=== PATIENT | female | born 1980 | race Caucasian/White ===

== ENCOUNTER 2016-10-08 16:00 | Emergency (ER) | payer OTHER ==
[~2016-10-08] VITALS: Ht 167.6 cm; Wt 81.6 kg
[2016-10-08] MEDS ORDERED: HYDROMORPHONE 1 MG/1 ML DISP.SYRIN ONE ×2 (16:20→18:06)
[2016-10-08] MEDS ORDERED: ONDANSETRON HCL/PF 4 MG/2 ML VIAL ONE (16:20)
[2016-10-08] MEDS ORDERED: IV SET PRIMARY PUMP SET 1 EA INFUS.SET MC ONE (16:20)
[2016-10-08] MEDS ORDERED: IV NS 0.9% 1,000 ML ONE (16:20)
[2016-10-08 16:30] LABS: BASOPHILS # (AUTO) 0.1 /CMM (0.0-0.2); BASOPHILS % (AUTO) 0.7 % (0.0-2.0); DIFF TOTAL % 100 %; EOSINOPHILS # (AUTO) 0.1 /CMM (0.0-0.7); EOSINOPHILS % (AUTO) 0.9 % (0.0-6.0); HEMATOCRIT 45 % (33-45); HEMOGLOBIN 14.9 g/dL (11.5-14.8); LYMPHOCYTES # (AUTO) 2.9 /CMM (0.8-4.8); LYMPHOCYTES % (AUTO) 24.9 % (20.0-44.0); MEAN CORPUSCULAR HEMOGLOBIN 28 PG (26.0-33.0); MEAN CORPUSCULAR HGB CONC 33 g/dl (31.0-36.0); MEAN CORPUSCULAR VOLUME 84 fL (82-100); MONOCYTES # (AUTO) 0.8 /CMM (0.1-1.30); MONOCYTES % (AUTO) 6.6 % (2.0-12.0); NEUTROPHILS # (AUTO) 7.7 /CMM (1.8-8.9); NEUTROPHILS % (AUTO) 66.9 % (43.0-81.0); PLATELET COUNT (AUTO) 480 /CMM (150-450); WHITE BLOOD COUNT (AUTO) 11.6 K/uL (4.3-11.0)
[2016-10-08] MEDS ORDERED: ONDANSETRON HCL/PF 4 MG/2 ML VIAL IVP ONE (16:30)
[2016-10-08] MEDS ORDERED: HYDROMORPHONE INJ 2 MG/ML DISP.SYRIN IV ONE (16:30)
[2016-10-08] MEDS ORDERED: IV NS 0.9% 1,000 ML BAG IV ONE (16:30)
[2016-10-08 16:32] LABS: KETONES,URINE 80 (NEGATIVE); LEUKOCYTE ESTERASE ,URINE Negative (NEGATIVE); PH,URINE 5.5 (5.0-8.0)
[2016-10-08 16:35] LABS: ADD UA MICROSCOPIC YES
[2016-10-08 16:36] LABS: PREGNANCY TEST URINE QUAL NEGATIVE (NEGATIVE)
[2016-10-08 16:44] LABS: INR 0.9 (0.87-1.13); PROTHROMBIN TIME 9.4 SECS (9.5-12.7)
[2016-10-08 16:46] LABS: ALBUMIN 3.6 g/dL (3.4-5.0); BILIRUBIN,DIRECT 0.1 mg/dL (0.0-0.2); BILIRUBIN,TOTAL 0.9 mg/dL (0.2-1.0); CREATININE 0.8 mg/dL (0.6-1.3); INDIRECT BILIRUBIN 0.8 mg/dL (0.0-1.1); POTASSIUM 3.7 mmol/L (3.5-5.1)
[2016-10-08 16:50] LABS: ADD URINE CULTURE NO; RBC,URINE NONE SEEN /HPF (0-2); WBC,URINE NONE SEEN /HPF (0-3)
[2016-10-08] MEDS ORDERED: HYDROMORPHONE 1 MG/1 ML DISP.SYRIN IV ONE (18:00)
[2016-10-08 18:37] VITALS: BP 134/72
[2016-10-08] MEDS ORDERED: INSULIN DETEMIR 100 UNIT/ML CARTRIDGE SQ SCH (22:00)
[2016-10-08] MEDS ORDERED: INSULIN GLARGINE, 100 UNIT/ML CARTRIDGE SQ SCH (22:00)
== END 2016-10-08 18:38 | disposition home or self-care (01) ==
LOC: ER 16:01
DX: R10.9 Unspecified abdominal pain (principal); E11.65 Type 2 diabetes mellitus with hyperglycemia; Z88.5 Allergy status to narcotic agent; Z88.8 Allergy status to other drugs, medicaments and biological substances
CPT/HCPCS: 36415; 71010; 74176; 80048; 80076; 81001; 83690; 84703; 85025; 85730; 96361; 96372; 96374; 96375; 96376; 99285; A4606; J1170 ×2; J1815; J2405; J7030; Z7610; 81000-TC

== ENCOUNTER 2016-11-02 15:35 | Emergency (ER) | payer OTHER ==
[~2016-11-02] VITALS: Ht 165.1 cm; Wt 83.9 kg
[2016-11-02] MEDS ORDERED: IV NS 0.9% 1,000 ML BAG IV ONE (16:00)
[2016-11-02] MEDS ORDERED: HYDROMORPHONE INJ 2 MG/ML DISP.SYRIN IV ONE (16:00)
[2016-11-02] MEDS ORDERED: ONDANSETRON HCL/PF 4 MG/2 ML VIAL IVP ONE (16:00)
[2016-11-02] MEDS ORDERED: IV SET PRIMARY 1 EA INFUS.SET MC ONE ×2 (16:01→16:33)
[2016-11-02] MEDS ORDERED: HYDROMORPHONE 1 MG/1 ML DISP.SYRIN ONE ×2 (16:01→18:26)
[2016-11-02] MEDS ORDERED: IV NS 0.9% 1,000 ML ONE ×2 (16:02→16:33)
[2016-11-02] MEDS ORDERED: ONDANSETRON HCL/PF 4 MG/2 ML VIAL ONE ×2 (16:02→18:34)
[2016-11-02 16:08] LABS: BASOPHILS # (AUTO) 0.1 /CMM (0.0-0.2); BASOPHILS % (AUTO) 0.8 % (0.0-2.0); DIFF TOTAL % 100 %; EOSINOPHILS # (AUTO) 0.1 /CMM (0.0-0.7); EOSINOPHILS % (AUTO) 1.3 % (0.0-6.0); HEMATOCRIT 42 % (33-45); HEMOGLOBIN 14.1 g/dL (11.5-14.8); LYMPHOCYTES # (AUTO) 3.2 /CMM (0.8-4.8); LYMPHOCYTES % (AUTO) 33.4 % (20.0-44.0); MEAN CORPUSCULAR HEMOGLOBIN 28 PG (26.0-33.0); MEAN CORPUSCULAR HGB CONC 34 g/dl (31.0-36.0); MEAN CORPUSCULAR VOLUME 83 fL (82-100); MONOCYTES # (AUTO) 0.7 /CMM (0.1-1.30); MONOCYTES % (AUTO) 6.8 % (2.0-12.0); NEUTROPHILS # (AUTO) 5.5 /CMM (1.8-8.9); NEUTROPHILS % (AUTO) 57.7 % (43.0-81.0); PLATELET COUNT (AUTO) 427 /CMM (150-450); RED BLOOD CELL COUNT(AUTO) 5.07 MIL/uL (4.0-5.2); WHITE BLOOD COUNT (AUTO) 9.6 K/uL (4.3-11.0)
[2016-11-02 16:13] LABS: KETONES,URINE Trace (NEGATIVE); LEUKOCYTE ESTERASE ,URINE Negative (NEGATIVE); PH,URINE 5.5 (5.0-8.0)
[2016-11-02 16:15] LABS: ADD UA MICROSCOPIC YES; PREGNANCY TEST URINE QUAL NEGATIVE (NEGATIVE)
[2016-11-02 16:17] LABS: ADD URINE CULTURE NO
[2016-11-02 16:23] LABS: POTASSIUM 3.9 mmol/L (3.5-5.1)
[2016-11-02] MEDS ORDERED: IV NS 0.9% 1,000 ML IV ONE (16:30)
[2016-11-02 16:33] LABS: ALBUMIN 3.4 g/dL (3.4-5.0); BILIRUBIN,DIRECT 0.1 mg/dL (0.0-0.2); BILIRUBIN,TOTAL 0.6 mg/dL (0.2-1.0); CREATININE 0.8 mg/dL (0.6-1.3); INDIRECT BILIRUBIN 0.5 mg/dL (0.0-1.1); TOTAL PROTEIN, SERUM 7.3 g/dL (6.4-8.2)
[2016-11-02] MEDS ORDERED: INSULIN REGULAR, HUMAN 100 UNIT/ML 10 ML VIAL SQ ONE (17:30)
[2016-11-02] MEDS ORDERED: INSULIN REGULAR, HUMAN 100 UNIT/ML 10 ML VIAL ONE (17:47)
[2016-11-02] MEDS ORDERED: HYDROMORPHONE 1 MG/1 ML DISP.SYRIN IV ONE (18:30)
[2016-11-02 20:13] VITALS: BP 128/77
== END 2016-11-02 20:15 | disposition home or self-care (01) ==
LOC: ER 15:37
DX: E11.65 Type 2 diabetes mellitus with hyperglycemia (principal); K85.90 Acute pancreatitis without necrosis or infection, unspecified; R10.9 Unspecified abdominal pain; Z88.6 Allergy status to analgesic agent; Z88.8 Allergy status to other drugs, medicaments and biological substances; Z90.49 Acquired absence of other specified parts of digestive tract
CPT/HCPCS: 36415; 80048; 80076; 81001; 82962; 83690; 84703; 85025; 96361; 96372; 96374; 96375; 96376; 99284; A4606; J1170 ×2; J1815; J2405 ×2; J7030 ×2; Z7610; 81000-TC

== ENCOUNTER 2017-02-01 13:34 | Emergency (ER) | payer OTHER ==
[~2017-02-01] VITALS: Ht 167.6 cm; Wt 83.9 kg
[2017-02-01] MEDS ORDERED: ACETAMINOPHEN ES 500 MG TABLET PO ONE (14:30)
[2017-02-01] MEDS ORDERED: METOCLOPRAMIDE HCL 10 MG/2 ML VIAL IV ONE (14:30)
[2017-02-01 14:31] LABS: BASOPHILS # (AUTO) 0.1 /CMM (0.0-0.2); BASOPHILS % (AUTO) 0.7 % (0.0-2.0); EOSINOPHILS # (AUTO) 0.1 /CMM (0.0-0.7); EOSINOPHILS % (AUTO) 1.1 % (0.0-6.0); HEMATOCRIT 39 % (33-45); HEMOGLOBIN 13.4 g/dL (11.5-14.8); LYMPHOCYTES # (AUTO) 2.3 /CMM (0.8-4.8); LYMPHOCYTES % (AUTO) 30.4 % (20.0-44.0); MEAN CORPUSCULAR HEMOGLOBIN 29 PG (26.0-33.0); MEAN CORPUSCULAR HGB CONC 34 g/dl (31.0-36.0); MEAN CORPUSCULAR VOLUME 84 fL (82-100); MONOCYTES # (AUTO) 0.6 /CMM (0.1-1.30); MONOCYTES % (AUTO) 8.3 % (2.0-12.0); NEUTROPHILS # (AUTO) 4.6 /CMM (1.8-8.9); NEUTROPHILS % (AUTO) 59.5 % (43.0-81.0); PLATELET COUNT (AUTO) 390 /CMM (150-450); RDW COEFFICIENT OF VARIATION 12.9 (11.5-15.0); RED BLOOD CELL COUNT(AUTO) 4.67 MIL/uL (4.0-5.2); WHITE BLOOD COUNT (AUTO) 7.7 K/uL (4.3-11.0)
[2017-02-01] MEDS ORDERED: ACETAMINOPHEN ES 500 MG TABLET ONE (14:31)
[2017-02-01] MEDS ORDERED: METOCLOPRAMIDE HCL 10 MG/2 ML VIAL ONE (14:31)
[2017-02-01 14:35] LABS: APPEARANCE,URINE CLEAR (CLEAR); BILIRUBIN,URINE NEGATIVE (NEGATIVE); BLOOD, URINE NEGATIVE Ery/uL (NEGATIVE); COLOR,URINE YELLOW (YELLOW); KETONES,URINE 1+ (NEGATIVE); LEUKOCYTE ESTERASE ,URINE NEGATIVE (NEGATIVE); NITRITE, URINE NEGATIVE (NEGATIVE); PROTEIN,URINE NEGATIVE (NEGATIVE); UGLUCOSE 3+ mg/dL (NEGATIVE); UROBILINOGEN,URINE 0.2 EU/dL (0.2)
[2017-02-01 14:44] LABS: BACTERIA,URINE Few /HPF (None Seen); PREGNANCY TEST URINE QUAL NEGATIVE (NEGATIVE); RBC,URINE 0-2 /HPF (0-2); WBC,URINE 0-2 /HPF (0-3); YEAST,URINE Few /HPF (None Seen)
--- NOTE | 2017-02-01 14:55 | NUR ---
IV removed. Catheter intact and site benign. Pressure and 4x4 applied to site. No bleeding noted.
--- NOTE | 2017-02-01 14:57 | NUR ---
PT STATES SHE NEEDS TO LEAVE TO GET HER DAUGHTER. Patient does not wish to proceed with medical care recommended by Dr. Gracia. Patient given information related to possible complications, up to and including , which could occur as a result of leaving the hospital at this time. Patient verbalizes understanding of risks involved due to leaving against medical advice. Patient has signed AMA form.
[2017-02-01 15:28] VITALS: BP 121/65
== END 2017-02-01 15:29 | disposition left against medical advice (07) ==
LOC: ER 13:35
DX: R51 Headache (principal); R42 Dizziness and giddiness; R19.7 Diarrhea, unspecified; R10.32 Left lower quadrant pain; E11.9 Type 2 diabetes mellitus without complications; Z90.49 Acquired absence of other specified parts of digestive tract; Z88.5 Allergy status to narcotic agent; Z88.8 Allergy status to other drugs, medicaments and biological substances
CPT/HCPCS: 36415; 81000-TC; 84703-TC; 85025-TC; A4606; J2765; Z7610

== ENCOUNTER 2018-04-28 17:43 | Emergency (ER) | payer OTHER ==
[~2018-04-28] VITALS: Ht 165.1 cm; Wt 81.6 kg
[2018-04-28 18:48] LABS: APPEARANCE,URINE Clear (CLEAR); BILIRUBIN,URINE Negative (NEGATIVE); BLOOD, URINE Trace-intact Ery/uL (NEGATIVE); COLOR,URINE Yellow (YELLOW); KETONES,URINE 15 (NEGATIVE); LEUKOCYTE ESTERASE ,URINE Negative (NEGATIVE); NITRITE, URINE Negative (NEGATIVE); PH,URINE 6.5 (5.0-8.0); PROTEIN,URINE Negative (NEGATIVE); UGLUCOSE >=1000 mg/dL (NEGATIVE); UROBILINOGEN,URINE 0.2 EU/dL (0.2)
[2018-04-28 19:10] LABS: BASOPHILS # (AUTO) 0.1 /CMM (0.0-0.2); BASOPHILS % (AUTO) 0.7 % (0.0-2.0); EOSINOPHILS % (AUTO) 0.7 % (0.0-6.0); HEMATOCRIT 40 % (33-45); HEMOGLOBIN 13.3 g/dL (11.5-14.8); LYMPHOCYTES # (AUTO) 2.8 /CMM (0.8-4.8); LYMPHOCYTES % (AUTO) 32.3 % (20.0-44.0); MEAN CORPUSCULAR HEMOGLOBIN 27 PG (26.0-33.0); MEAN CORPUSCULAR HGB CONC 33 g/dl (31.0-36.0); MEAN CORPUSCULAR VOLUME 82 fL (82-100); MONOCYTES # (AUTO) 0.5 /CMM (0.1-1.30); MONOCYTES % (AUTO) 5.9 % (2.0-12.0); NEUTROPHILS # (AUTO) 5.2 /CMM (1.8-8.9); NEUTROPHILS % (AUTO) 60.4 % (43.0-81.0); PLATELET COUNT (AUTO) 482 /CMM (150-450); RDW COEFFICIENT OF VARIATION 12.3 (11.5-15.0); RED BLOOD CELL COUNT(AUTO) 4.87 MIL/uL (4.0-5.2); WHITE BLOOD COUNT (AUTO) 8.7 K/uL (4.3-11.0)
--- NOTE | 2018-04-28 19:10 | NUR ---
ASSUMED CARE. PT C/O LUQ ABDOMINAL PAIN WITH NAUSEA AND DIARRHEA SINCE THIS MORNING. PT AAOX4 NO ACUTE DISTRESS NOTED, RESP EVEN AND UNLABORED. PT WAS SEEN AND EVALUATED BY ER PROFESSIONAL BENEFITS SALES CONSULTANT WITH ORDERS. WILL CARRY OUT ORDERS.
[2018-04-28 19:15] LABS: BACTERIA,URINE None seen /HPF (None Seen); SQUAMOUS EPITHELIAL CELL,UR Few /HPF (None Seen); WBC,URINE 0-2 /HPF (0-3)
[2018-04-28] MEDS ORDERED: HYDROMORPHONE 1 MG/1 ML DISP.SYRIN ONE (19:18)
[2018-04-28] MEDS ORDERED: ONDANSETRON HCL/PF 4 MG/2 ML VIAL ONE (19:18)
[2018-04-28 19:24] LABS: INR 0.88 (0.85-1.15)
[2018-04-28] MEDS: HYDROMORPHONE INJ 2 MG/ML DISP.SYRIN IV ONE (19:25)
[2018-04-28] MEDS: ONDANSETRON HCL/PF 4 MG/2 ML VIAL IVP ONE (19:25)
[2018-04-28] MEDS: IV NS 0.9% 1,000 ML BAG IV ONE (19:25)
--- NOTE | 2018-04-28 19:25 | NUR ---
PT MEDICATED BY RN PER ER MD ORDER.
[2018-04-28 19:27] LABS: ALBUMIN 3.1 g/dL (3.4-5.0); BILIRUBIN,DIRECT 0.1 mg/dL (0.0-0.2); BILIRUBIN,TOTAL 0.5 mg/dL (0.2-1.0); CALCIUM, SERUM 8.4 mg/dL (8.5-10.1); CREATININE 0.9 mg/dL (0.6-1.3); POTASSIUM 4.1 mmol/L (3.5-5.1); TOTAL PROTEIN, SERUM 7.2 g/dL (6.4-8.2)
[2018-04-28] MEDS ORDERED: INSULIN REGULAR, HUMAN 100 UNIT/ML 10 ML VIAL ONE (19:44)
[2018-04-28] MEDS: INSULIN REGULAR, HUMAN 100 UNIT/ML 10 ML VIAL IV ONE (19:47)
[2018-04-28 20:12] LABS: LIPASE 175 U/L (73-393)
--- NOTE | 2018-04-28 21:10 | NUR ---
IV removed. Catheter intact and site benign. Pressure and 4x4 applied to site. No bleeding noted. Patient discharged to home in stable condition. Written and verbal after care instructions given. Patient verbalizes understanding of instruction. ambulatory with a steady gait noted. pt aaox4 no acute distress noted, resp even and unlabored. advice pt not to drive or operate any machinery due to pt was given narcotic medicine. pt verbalize understanding.
[2018-04-28 21:14] VITALS: BP 127/75
== END 2018-04-28 21:15 | disposition home or self-care (01) ==
LOC: ER 17:47
DX: E11.65 Type 2 diabetes mellitus with hyperglycemia (principal); Z87.19 Personal history of other diseases of the digestive system; Z90.49 Acquired absence of other specified parts of digestive tract; Z98.890 Other specified postprocedural states; Z88.8 Allergy status to other drugs, medicaments and biological substances
CPT/HCPCS: 36415; 80048-TC; 80076-TC; 81000-TC; 82010-TC; 82962-TC; 83605-TC; 83690-TC; 84703-TC; 85025-TC; 85730-TC; 87040-TC; A4606; J1170; J1815; J2405; J7030; Z7610

== ENCOUNTER 2018-05-17 17:46 | Emergency (ER) | payer OTHER ==
[~2018-05-17] VITALS: Ht 175.3 cm; Wt 81.6 kg
[2018-05-17] MEDS ORDERED: BUPIVACAINE 0.5 % PF 150 MG/30 ML VIAL ONE (18:17)
[2018-05-17] MEDS ORDERED: BUPIVACAINE 0.5 % PF 150 MG/30 ML VIAL TP ONE (18:30)
[2018-05-17] MEDS ORDERED: MORPHINE SULFATE INJ 2 MG/ML DISP.SYRIN IM ONE (18:30)
[2018-05-17] MEDS ORDERED: MORPHINE SULFATE INJ 4 MG/ML DISP.SYRIN ONE (18:32)
[2018-05-17] MEDS ORDERED: IV NS 0.9% 1,000 ML BAG IV ONE (19:30)
[2018-05-17] MEDS ORDERED: INSULIN REGULAR, HUMAN 100 UNIT/ML 10 ML VIAL SQ ONE (19:30)
[2018-05-17 19:38] LABS: HEMOGLOBIN 13.9 g/dL (11.5-14.8)
[2018-05-17] MEDS ORDERED: INSULIN REGULAR, HUMAN 100 UNIT/ML 10 ML VIAL ONE (19:39)
--- NOTE | 2018-05-17 19:48 | NUR ---
PT SITTING UPRIGHT ON HOSPITAL BED INITIAL C/C OF TOE PAIN. HX OF DM. ACCUCHECK READING 439. PT AA/OX4. NO S/S SOB. SKIN PINK, WARM, DRY. TOE CARE COMPLETED BY PA. MOVES ALL EXTREMITIES WELL. NAD. VSS. STABLE CONDITION. WILL CONTINUE TO MONITOR.
[2018-05-17 19:57] LABS: BASOPHILS # (AUTO) 0.1 /CMM (0.0-0.2); BASOPHILS % (AUTO) 1.3 % (0.0-2.0); EOSINOPHILS % (AUTO) 1.3 % (0.0-6.0); HEMATOCRIT 42 % (33-45); LYMPHOCYTES # (AUTO) 3.1 /CMM (0.8-4.8); LYMPHOCYTES % (AUTO) 30.5 % (20.0-44.0); MEAN CORPUSCULAR HGB CONC 33 g/dl (31.0-36.0); MEAN CORPUSCULAR VOLUME 82 fL (82-100); MONOCYTES # (AUTO) 0.7 /CMM (0.1-1.30); MONOCYTES % (AUTO) 6.6 % (2.0-12.0); NEUTROPHILS # (AUTO) 6.2 /CMM (1.8-8.9); NEUTROPHILS % (AUTO) 60.3 % (43.0-81.0); PLATELET COUNT (AUTO) 506 /CMM (150-450); RDW COEFFICIENT OF VARIATION 12.1 (11.5-15.0); RED BLOOD CELL COUNT(AUTO) 5.15 MIL/uL (4.0-5.2); WHITE BLOOD COUNT (AUTO) 10.2 K/uL (4.3-11.0)
[2018-05-17 20:05] LABS: CREATININE 0.8 mg/dL (0.6-1.3); POTASSIUM 3.8 mmol/L (3.5-5.1)
[2018-05-17] MEDS ORDERED: HYDROCODONE/APAP 5/325MG 1 EACH TABLET ONE (20:15)
[2018-05-17] MEDS ORDERED: HYDROCODONE/APAP 5/325MG 1 EACH TABLET PO ONE (20:30)
--- NOTE | 2018-05-17 20:59 | NUR ---
Patient discharged to home in stable condition. Written and verbal after care instructions given. Patient verbalizes understanding of instruction. IV removed. Catheter intact and site benign. Pressure and 4x4 applied to site. No bleeding noted. AMBULATED WITH STEADY GAIT. INSTRUCTED NOT TO DRIVE OR OPERATE HEAVY MACHINERY.
[2018-05-17 21:01] VITALS: BP 118/80
== END 2018-05-17 21:02 | disposition home or self-care (01) ==
LOC: ER 17:47
DX: L03.032 Cellulitis of left toe (principal); L60.0 Ingrowing nail; E11.65 Type 2 diabetes mellitus with hyperglycemia; E87.1 Hypo-osmolality and hyponatremia; E86.0 Dehydration; Z87.19 Personal history of other diseases of the digestive system; Z90.49 Acquired absence of other specified parts of digestive tract; Z98.890 Other specified postprocedural states; Z88.8 Allergy status to other drugs, medicaments and biological substances
CPT/HCPCS: 11730; 36415; 80048-TC; 82962-TC; 85025-TC; A4606; A6402; A6403; J1815; J2270; J3490; Z7610

== ENCOUNTER 2018-09-01 13:27 | Emergency (ER) | payer OTHER ==
[~2018-09-01] VITALS: Ht 167.6 cm; Wt 38.6 kg
--- NOTE | 2018-09-01 13:40 | NUR ---
PT AMBULATORY TO ER BED 11 C/O LUQ ABDOMINAL PAIN W/ NAUSEA X 13 HOURS. ALSO C/O SORETHROAT. GOWNED AND PLACED ON MONITOR. AWAITING MD VÁZQUEZ.
--- NOTE | 2018-09-01 14:21 | NUR ---
DR BANERJEE AT BEDSIDE FOR EVAL.
[2018-09-01 14:31] LABS: BASOPHILS # (AUTO) 0.1 /CMM (0.0-0.2); BASOPHILS % (AUTO) 0.8 % (0.0-2.0); HEMATOCRIT 36 % (33-45); HEMOGLOBIN 12.2 g/dL (11.5-14.8); LYMPHOCYTES # (AUTO) 2.8 /CMM (0.8-4.8); LYMPHOCYTES % (AUTO) 34.5 % (20.0-44.0); MEAN CORPUSCULAR HGB CONC 34 g/dl (31.0-36.0); MEAN CORPUSCULAR VOLUME 85 fL (82-100); MONOCYTES # (AUTO) 0.8 /CMM (0.1-1.30); NEUTROPHILS # (AUTO) 4.3 /CMM (1.8-8.9); NEUTROPHILS % (AUTO) 53.7 % (43.0-81.0); PLATELET COUNT (AUTO) 448 /CMM (150-450); RED BLOOD CELL COUNT(AUTO) 4.29 MIL/uL (4.0-5.2)
[2018-09-01 14:32] LABS: APPEARANCE,URINE Clear (CLEAR); BILIRUBIN,URINE Negative (NEGATIVE); BLOOD, URINE Trace-lysed Ery/uL (NEGATIVE); COLOR,URINE Yellow (YELLOW); KETONES,URINE Trace (NEGATIVE); LEUKOCYTE ESTERASE ,URINE Negative (NEGATIVE); NITRITE, URINE Negative (NEGATIVE); PROTEIN,URINE Trace mg/dl (NEGATIVE); UGLUCOSE >=1000 mg/dL (NEGATIVE); UROBILINOGEN,URINE 0.2 EU/dL (0.2)
[2018-09-01 14:38] LABS: CALCIUM, SERUM 8.2 mg/dL (8.5-10.1); CREATININE 0.7 mg/dL (0.6-1.3); POTASSIUM 3.7 mmol/L (3.5-5.1)
[2018-09-01 14:38] LABS: BACTERIA,URINE Few /HPF (None Seen); SQUAMOUS EPITHELIAL CELL,UR Few /HPF (None Seen); WBC,URINE 0-2 /HPF (0-3)
[2018-09-01] MEDS ORDERED: ONDANSETRON HCL/PF 4 MG/2 ML VIAL ONE (14:41)
[2018-09-01 14:46] LABS: BILIRUBIN,DIRECT 0.1 mg/dL (0.0-0.2); BILIRUBIN,TOTAL 0.4 mg/dL (0.2-1.0); TOTAL PROTEIN, SERUM 6.6 g/dL (6.4-8.2)
[2018-09-01] MEDS ORDERED: HYDROMORPHONE INJ 2 MG/ML DISP.SYRIN ONE (14:47)
[2018-09-01] MEDS: IV NS 0.9% 1,000 ML BAG IV ONE (14:50)
[2018-09-01] MEDS ORDERED: IV NS 0.9% 250 ML IV ONE (14:50)
[2018-09-01] MEDS ORDERED: IOHEXOL-300 100 ML VIAL IV ONE (14:50)
[2018-09-01] MEDS ORDERED: CT SWABBABLE VALVE TRANS SET 1 EA INFUS.SET MC ONE (14:50)
[2018-09-01] MEDS: ONDANSETRON HCL/PF 4 MG/2 ML VIAL IVP ONE (14:51)
[2018-09-01] MEDS: HYDROMORPHONE INJ 0.5 MG/0.5 ML SYRINGE IV ONE (14:53)
[2018-09-01] MEDS: MORPHINE SULFATE INJ 2 MG/ML DISP.SYRIN IV ONE (14:54)
--- NOTE | 2018-09-01 15:05 | NUR ---
PT TO RADIOLOGY FOR ABDOMINAL CT SCAN VIA [facility].
[2018-09-01] MEDS: AZITHROMYCIN 250 MG TABLET PO ONE (18:13)
[2018-09-01] MEDS ORDERED: AZITHROMYCIN 250 MG TABLET ONE (18:13)
[2018-09-01] MEDS ORDERED: TRAMADOL HCL 50 MG TABLET ONE (19:07)
[2018-09-01] MEDS: TRAMADOL HCL 50 MG TABLET PO ONE (19:10)
--- NOTE | 2018-09-01 19:10 | NUR ---
PT IS STILL C/O PAIN, ERMD MADE AWARE. ULTRAM 50MG PO GIVEN,
--- NOTE | 2018-09-01 19:17 | NUR ---
Note renée in EDM - 09/01/18 at 1919 by KAYE Patient discharged to home in stable condition. Written and verbal after care instructions given. Patient verbalizes understanding of instruction.IV removed. Catheter intact and site benign. Pressure and 4x4 applied to site. No bleeding noted.
[2018-09-01 19:22] VITALS: BP 120/65
== END 2018-09-01 19:23 | disposition home or self-care (01) ==
LOC: ER 13:30
DX: K52.9 Noninfective gastroenteritis and colitis, unspecified (principal); I88.9 Nonspecific lymphadenitis, unspecified; J02.9 Acute pharyngitis, unspecified; E11.9 Type 2 diabetes mellitus without complications; Z90.49 Acquired absence of other specified parts of digestive tract; Z98.890 Other specified postprocedural states; Z87.19 Personal history of other diseases of the digestive system; Z88.8 Allergy status to other drugs, medicaments and biological substances
CPT/HCPCS: 36415; 80048-TC; 80076-TC; 81000-TC; 82010-TC; 82962-TC; 83605-TC; 83690-TC; 84703-TC; 85025-TC; J1170; J2405; J7030; J7050; Q9967

== ENCOUNTER 2018-10-27 14:29 | Emergency (ER) | payer OTHER ==
[~2018-10-27] VITALS: Ht 167.6 cm; Wt 83.9 kg
--- NOTE | 2018-10-27 15:25 | NUR ---
ORVILLE MEDRANO AT BEDSIDE FOR EVAL.
[2018-10-27] MEDS ORDERED: IV NS 0.9% 1,000 ML BAG IV ONE (15:30)
[2018-10-27] MEDS ORDERED: ONDANSETRON HCL/PF 4 MG/2 ML VIAL IVP ONE (15:30)
[2018-10-27] MEDS ORDERED: MORPHINE SULFATE INJ 2 MG/ML DISP.SYRIN IV ONE ×2 (15:30→18:00)
--- NOTE | 2018-10-27 15:35 | NUR ---
IV LINE STARTED BLOOD DRAWN AND SENT TO LAB.
[2018-10-27] MEDS ORDERED: MORPHINE SULFATE INJ 4 MG/ML DISP.SYRIN ONE ×2 (15:37→18:05)
[2018-10-27] MEDS ORDERED: ONDANSETRON HCL/PF 4 MG/2 ML VIAL ONE (15:37)
[2018-10-27 15:39] LABS: BASOPHILS # (AUTO) 0.1 /CMM (0.0-0.2); BASOPHILS % (AUTO) 1.2 % (0.0-2.0); EOSINOPHILS % (AUTO) 0.8 % (0.0-6.0); HEMATOCRIT 38 % (33-45); HEMOGLOBIN 12.7 g/dL (11.5-14.8); LYMPHOCYTES # (AUTO) 1.9 /CMM (0.8-4.8); LYMPHOCYTES % (AUTO) 22.6 % (20.0-44.0); MEAN CORPUSCULAR HGB CONC 33 g/dl (31.0-36.0); MEAN CORPUSCULAR VOLUME 86 fL (82-100); MONOCYTES # (AUTO) 0.9 /CMM (0.1-1.30); MONOCYTES % (AUTO) 10.3 % (2.0-12.0); NEUTROPHILS # (AUTO) 5.6 /CMM (1.8-8.9); NEUTROPHILS % (AUTO) 65.1 % (43.0-81.0); PLATELET COUNT (AUTO) 455 /CMM (150-450); RED BLOOD CELL COUNT(AUTO) 4.45 MIL/uL (4.0-5.2); WHITE BLOOD COUNT (AUTO) 8.6 K/uL (4.3-11.0)
[2018-10-27 15:43] LABS: APPEARANCE,URINE Clear (CLEAR); BILIRUBIN,URINE Negative (NEGATIVE); BLOOD, URINE Negative Ery/uL (NEGATIVE); COLOR,URINE Yellow (YELLOW); KETONES,URINE Negative (NEGATIVE); LEUKOCYTE ESTERASE ,URINE Negative (NEGATIVE); NITRITE, URINE Negative (NEGATIVE); PH,URINE 5.5 (5.0-8.0); PROTEIN,URINE Negative (NEGATIVE); UGLUCOSE >=1000 mg/dL (NEGATIVE); UROBILINOGEN,URINE 0.2 EU/dL (0.2)
[2018-10-27 15:54] LABS: BACTERIA,URINE Few /HPF (None Seen); RBC,URINE 0-2 /HPF (0-2); SQUAMOUS EPITHELIAL CELL,UR Few /HPF (None Seen); WBC,URINE 0-2 /HPF (0-3)
[2018-10-27 16:07] LABS: CALCIUM, SERUM 8.8 mg/dL (8.5-10.1); CREATININE 0.8 mg/dL (0.6-1.3); POTASSIUM 4.3 mmol/L (3.5-5.1)
[2018-10-27 16:08] LABS: ALBUMIN 3.3 g/dL (3.4-5.0); BILIRUBIN,DIRECT 0.1 mg/dL (0.0-0.2); BILIRUBIN,TOTAL 0.5 mg/dL (0.2-1.0); TOTAL PROTEIN, SERUM 7.1 g/dL (6.4-8.2)
[2018-10-27] MEDS ORDERED: INSULIN REGULAR, HUMAN 100 UNIT/ML 10 ML VIAL ONE (16:28)
[2018-10-27] MEDS ORDERED: INSULIN REGULAR, HUMAN 100 UNIT/ML 10 ML VIAL SQ ONE (16:30)
[2018-10-27] MEDS ORDERED: KETOROLAC TROMETHAMINE INJ 30 MG/ML VIAL IV ONE (17:00)
[2018-10-27] MEDS ORDERED: KETOROLAC TROMETHAMINE INJ 30 MG/ML VIAL ONE (17:35)
[2018-10-27] MEDS ORDERED: IOHEXOL-300 100 ML VIAL IV ONE (17:57)
[2018-10-27] MEDS ORDERED: CT SWABBABLE VALVE TRANS SET 1 EA INFUS.SET MC ONE (17:57)
[2018-10-27] MEDS ORDERED: IV NS 0.9% 250 ML IV ONE (17:58)
--- NOTE | 2018-10-27 18:30 | NUR ---
PT TO RADIOLOGY FOR ABDOMINAL CT SCAN VIA [facility].
[2018-10-27 19:05] VITALS: BP 114/77
--- NOTE | 2018-10-27 19:05 | NUR ---
Patient discharged to home in stable condition. Written and verbal after care instructions given. Patient verbalizes understanding of instruction.IV removed. Catheter intact and site benign. Pressure and 4x4 applied to site. No bleeding noted.
== END 2018-10-27 19:06 | disposition home or self-care (01) ==
LOC: ER 14:35
DX: R10.32 Left lower quadrant pain (principal); E11.9 Type 2 diabetes mellitus without complications; Z86.19 Personal history of other infectious and parasitic diseases; Z98.890 Other specified postprocedural states; Z88.8 Allergy status to other drugs, medicaments and biological substances
CPT/HCPCS: 36415; 74177; 80048; 80076; 81001; 82962; 83690; 84703; 85025; 96361; 96372; 96374; 96375; 96376; 99284; A4606; J1815; J1885; J2270 ×2; J2405; J7030; J7050; Q9967; 81000-TC

== ENCOUNTER 2018-11-19 00:31 | Emergency (ER) | payer OTHER ==
[~2018-11-19] VITALS: Ht 167.6 cm; Wt 83.9 kg
[2018-11-19] MEDS ORDERED: PAROXETINE HCL 40MG TABLET (00:54)
[2018-11-19] MEDS ORDERED: PAROXETINE HCL 20 MG TABLET PO STA (01:19)
[2018-11-19] MEDS ORDERED: PAROXETINE HCL 20 MG TABLET ONE (01:47)
--- NOTE | 2018-11-19 01:50 | NUR ---
RECEIEVED MEDICATION FROM 3RD FLOOR PYS.
[2018-11-19 02:11] VITALS: BP 129/74
== END 2018-11-19 02:14 | disposition home or self-care (01) ==
LOC: ER 00:34
DX: F41.9 Anxiety disorder, unspecified (principal); F32.9 Major depressive disorder, single episode, unspecified; E11.9 Type 2 diabetes mellitus without complications; Z98.890 Other specified postprocedural states; Z90.49 Acquired absence of other specified parts of digestive tract; Z88.8 Allergy status to other drugs, medicaments and biological substances; Z79.899 Other long term (current) drug therapy

== ENCOUNTER 2018-12-13 19:05 | Emergency (ER) | payer OTHER ==
[~2018-12-13] VITALS: Ht 167.6 cm; Wt 83.9 kg
[~2018-12-13 19:05] MED LIST: PAROXETINE HCL 40MG TABLET
[2018-12-13] MEDS ORDERED: MORPHINE SULFATE INJ 4 MG/ML DISP.SYRIN ONE (19:49)
[2018-12-13] MEDS ORDERED: ONDANSETRON HCL/PF 4 MG/2 ML VIAL ONE (19:49)
[2018-12-13 20:00] LABS: BASOPHILS # (AUTO) 0.1 /CMM (0.0-0.2); BASOPHILS % (AUTO) 1.3 % (0.0-2.0); EOSINOPHILS % (AUTO) 1.2 % (0.0-6.0); HEMATOCRIT 39 % (33-45); HEMOGLOBIN 13.3 g/dL (11.5-14.8); LYMPHOCYTES % (AUTO) 37.8 % (20.0-44.0); MEAN CORPUSCULAR HGB CONC 34 g/dl (31.0-36.0); MEAN CORPUSCULAR VOLUME 85 fL (82-100); MONOCYTES # (AUTO) 0.6 /CMM (0.1-1.30); MONOCYTES % (AUTO) 7.9 % (2.0-12.0); NEUTROPHILS # (AUTO) 4.2 /CMM (1.8-8.9); NEUTROPHILS % (AUTO) 51.8 % (43.0-81.0); PLATELET COUNT (AUTO) 429 /CMM (150-450); RED BLOOD CELL COUNT(AUTO) 4.62 MIL/uL (4.0-5.2); WHITE BLOOD COUNT (AUTO) 8.1 K/uL (4.3-11.0)
[2018-12-13] MEDS ORDERED: ONDANSETRON HCL/PF 4 MG/2 ML VIAL IVP ONE (20:00)
[2018-12-13] MEDS ORDERED: MORPHINE SULFATE INJ 2 MG/ML DISP.SYRIN IV ONE (20:00)
--- NOTE | 2018-12-13 20:02 | NUR ---
C/C L ABD PAIN AND FLANK PAIN, +DYSURIA, -HEMATURIA, LAST BM YESTERDAY. PT AAOX4, VSS. DENIES ANY OTHER DISCOMFORT. PT SEEN & EVAL'D BY DR. DAILEY. MEDICATED PER ORDERED, PT LAKSHMI WELL. WILL CONT TO MONITOR.
[2018-12-13 20:03] LABS: APPEARANCE,URINE Clear (CLEAR); BILIRUBIN,URINE Negative (NEGATIVE); BLOOD, URINE Negative Ery/uL (NEGATIVE); COLOR,URINE Yellow (YELLOW); KETONES,URINE 15 (NEGATIVE); LEUKOCYTE ESTERASE ,URINE Negative (NEGATIVE); NITRITE, URINE Negative (NEGATIVE); PROTEIN,URINE Negative (NEGATIVE); UGLUCOSE 500 MG/DL mg/dL (NEGATIVE); UROBILINOGEN,URINE 0.2 EU/dL (0.2)
[2018-12-13 20:12] LABS: RBC,URINE 0-2 /HPF (0-2); WBC,URINE 0-2 /HPF (0-3)
[2018-12-13 20:12] LABS: ALBUMIN 3.2 g/dL (3.4-5.0); BILIRUBIN,DIRECT 0.1 mg/dL (0.0-0.2); BILIRUBIN,TOTAL 0.4 mg/dL (0.2-1.0); CALCIUM, SERUM 8.6 mg/dL (8.5-10.1); CREATININE 0.7 mg/dL (0.6-1.3); POTASSIUM 3.4 mmol/L (3.5-5.1)
[2018-12-13 20:13] LABS: BACTERIA,URINE Few /HPF (None Seen); SQUAMOUS EPITHELIAL CELL,UR Few /HPF (None Seen)
--- NOTE | 2018-12-13 20:14 | NUR ---
PT TO CT VIA [facility].
[2018-12-13] MEDS ORDERED: IV NS 0.9% 1,000 ML BAG IV ONE ×2 (21:00→22:00)
[2018-12-13] MEDS ORDERED: INSULIN LISPRO/ASPART 100 UNIT/ML CARTRIDGE SQ ONE ×2 (21:30→22:01)
[2018-12-13] MEDS ORDERED: INSULIN REGULAR, HUMAN 100 UNIT/ML 10 ML VIAL ONE (21:34)
[2018-12-13] MEDS ORDERED: KETOROLAC TROMETHAMINE INJ 30 MG/ML VIAL ONE (21:40)
--- NOTE | 2018-12-13 21:51 | NUR ---
PT STILL C/O LOW BACK PAIN 04/01, MEDICATED PER ERMD ORDER. PT LAKSHMI WELL.
[2018-12-13] MEDS ORDERED: KETOROLAC TROMETHAMINE INJ 30 MG/ML VIAL IV ONE (22:00)
[2018-12-13 23:15] VITALS: BP 124/76
--- NOTE | 2018-12-13 23:15 | NUR ---
Patient discharged to home in stable condition. Written and verbal after care instructions given. Patient verbalizes understanding of instruction. IV removed. Catheter intact and site benign. Pressure and 4x4 applied to site. No bleeding noted.
== END 2018-12-13 23:16 | disposition home or self-care (01) ==
LOC: ER 19:07
DX: R10.32 Left lower quadrant pain (principal); R10.12 Left upper quadrant pain; E11.65 Type 2 diabetes mellitus with hyperglycemia; M54.5 Low back pain; F41.9 Anxiety disorder, unspecified; F32.9 Major depressive disorder, single episode, unspecified; Z98.890 Other specified postprocedural states; Z90.49 Acquired absence of other specified parts of digestive tract; Z86.19 Personal history of other infectious and parasitic diseases; Z88.8 Allergy status to other drugs, medicaments and biological substances; Z79.899 Other long term (current) drug therapy
CPT/HCPCS: 36415; 74176; 80048; 80076; 81001; 82962; 83690; 84703; 85025; 87086; 96361; 96372; 96374; 96375; 99284; J1815 ×2; J1885; J2270; J2405; J7030 ×2; 81000-TC

== ENCOUNTER 2019-01-09 18:12 | Emergency (ER) ==
[~2019-01-09] VITALS: Ht 167.6 cm; Wt 90.7 kg
--- NOTE | 2019-01-09 19:00 | NUR ---
CAME IN FOR LOWER BACK PAIN AND BURNING SENSATION IN URINATION x 2 DAYS, WORST PAIN TODAY. TO ER BED 10,AOX 4, RESPIRATIONS EVEN AND UNLABORED, HOOKED TO MONITOR, PROVIDED WITH WARM BLANKET, AWAITING MD VÁZQUEZ.
--- NOTE | 2019-01-09 19:08 | NUR ---
PA MAIN AT BEDSIDE
[2019-01-09 19:22] LABS: BASOPHILS # (AUTO) 0.1 /CMM (0.0-0.2); BASOPHILS % (AUTO) 1.2 % (0.0-2.0); EOSINOPHILS % (AUTO) 1.1 % (0.0-6.0); HEMATOCRIT 36 % (33-45); HEMOGLOBIN 12.4 g/dL (11.5-14.8); LYMPHOCYTES % (AUTO) 35.4 % (20.0-44.0); MEAN CORPUSCULAR HGB CONC 34 g/dl (31.0-36.0); MEAN CORPUSCULAR VOLUME 85 fL (82-100); MONOCYTES # (AUTO) 0.7 /CMM (0.1-1.30); NEUTROPHILS # (AUTO) 4.6 /CMM (1.8-8.9); NEUTROPHILS % (AUTO) 54.3 % (43.0-81.0); PLATELET COUNT (AUTO) 467 /CMM (150-450); RED BLOOD CELL COUNT(AUTO) 4.29 MIL/uL (4.0-5.2); WHITE BLOOD COUNT (AUTO) 8.5 K/uL (4.3-11.0)
--- NOTE | 2019-01-09 19:22 | NUR ---
URINE SAMPLE SENT TO LAB
[2019-01-09 19:23] LABS: APPEARANCE,URINE Slightly Cloudy (CLEAR); BILIRUBIN,URINE Negative (NEGATIVE); BLOOD, URINE Small Ery/uL (NEGATIVE); COLOR,URINE Light yellow (YELLOW); KETONES,URINE 15 (NEGATIVE); LEUKOCYTE ESTERASE ,URINE Trace (NEGATIVE); NITRITE, URINE Negative (NEGATIVE); PH,URINE 5.5 (5.0-8.0); PROTEIN,URINE Negative (NEGATIVE); UGLUCOSE 500 MG/DL mg/dL (NEGATIVE); UROBILINOGEN,URINE 0.2 EU/dL (0.2)
[2019-01-09] MEDS ORDERED: ACETAMINOPHEN ES 500 MG TABLET ONE (19:23)
[2019-01-09] MEDS ORDERED: IBUPROFEN 400 MG TABLET ONE (19:23)
[2019-01-09 19:29] LABS: RBC,URINE 0-2 /HPF (0-2); WBC,URINE 51-80 /HPF (0-3)
[2019-01-09 19:30] LABS: BACTERIA,URINE Few /HPF (None Seen); SQUAMOUS EPITHELIAL CELL,UR Rare /HPF (None Seen)
[2019-01-09] MEDS ORDERED: IBUPROFEN 400 MG TABLET PO ONE (19:30)
[2019-01-09] MEDS ORDERED: ACETAMINOPHEN ES 500 MG TABLET PO ONE (19:30)
--- NOTE | 2019-01-09 19:32 | NUR ---
REC'D REPORT FROM TRISH DAY FOR RIO. PT RESTING COMFORTABLY IN BED. VSS. WILL CONTINUE TO MONITOR
[2019-01-09 19:34] LABS: BILIRUBIN,TOTAL 0.4 mg/dL (0.2-1.0); CREATININE 0.7 mg/dL (0.6-1.3); POTASSIUM 4.1 mmol/L (3.5-5.1)
[2019-01-09 19:35] LABS: ALBUMIN 3.3 g/dL (3.4-5.0); TOTAL PROTEIN, SERUM 7.5 g/dL (6.4-8.2)
--- NOTE | 2019-01-09 19:35 | NUR ---
REPORT GIVEN TO ISAURO BOWMAN RN FOR RIO
[2019-01-09] MEDS ORDERED: IV NS 0.9% 1,000 ML BAG IV ONE (20:00)
[2019-01-09] MEDS ORDERED: HYDROCODONE/APAP 5/325MG 1 EACH TABLET PO ONE (20:00)
[2019-01-09] MEDS ORDERED: CEFTRIAXONE 1 G VIAL ONE (20:12)
[2019-01-09] MEDS ORDERED: HYDROCODONE/APAP 5/325MG 1 EACH TABLET ONE (20:12)
[2019-01-09] MEDS ORDERED: CEFTRIAXONE 1 G in IV D5W 50 ML IV ONE (20:30)
[2019-01-09] MEDS ORDERED: CEFTRIAXONE 2 G in IV D5W 50 ML IV ONE (20:30)
[2019-01-09] MEDS ORDERED: oxyCODONE/APAP (5/325 MG) 1 UDTAB TABLET PO ONE (20:30)
[2019-01-09] MEDS ORDERED: oxyCODONE/APAP (5/325 MG) 1 UDTAB TABLET ONE (20:35)
[2019-01-09] MEDS ORDERED: MORPHINE SULFATE INJ 4 MG/ML DISP.SYRIN ONE (21:15)
--- NOTE | 2019-01-09 21:28 | NUR ---
Patient discharged to home in stable condition. Written and verbal after care instructions given. Patient verbalizes understanding of instruction. IV removed. Catheter intact and site benign. Pressure and 4x4 applied to site. No bleeding noted. Pt ambulatory with a steady gait. Pt instructed not to drive, picked up by
[2019-01-09 21:29] VITALS: BP 122/72
[2019-01-09] MEDS ORDERED: MORPHINE SULFATE INJ 2 MG/ML DISP.SYRIN IV ONE (21:30)
== END 2019-01-09 21:29 | disposition home or self-care (01) ==
LOC: ER 18:22
DX: N12 Tubulo-interstitial nephritis, not specified as acute or chronic (principal); E11.65 Type 2 diabetes mellitus with hyperglycemia; F41.9 Anxiety disorder, unspecified; F32.9 Major depressive disorder, single episode, unspecified; F10.10 Alcohol abuse, uncomplicated; Y90.9 Presence of alcohol in blood, level not specified; Z98.890 Other specified postprocedural states; Z88.9 Allergy status to unspecified drugs, medicaments and biological substances
CPT/HCPCS: 36415; 80053; 81001; 83690; 84703; 85025; 87077; 87086; 96365; 96375; 99284; J0696 ×3; J2270; J7030; J7060 ×3; 81000-TC

== ENCOUNTER 2019-01-30 12:38 | Emergency (ER) | payer OTHER ==
[~2019-01-30] VITALS: Ht 167.6 cm; Wt 86.2 kg
--- NOTE | 2019-01-30 13:00 | NUR ---
C/O ABDOMINAL PAIN SINCE YESTERDAY, +DIARRHE,+NAUSEA/VOMITING. PATIENT A/OX4, BREATHING EVEN AND UNLABORED, PLACED ON T HE MONITOR.
[2019-01-30 13:40] LABS: BILIRUBIN,URINE SMALL (NEGATIVE); BLOOD, URINE Trace-lysed Ery/uL (NEGATIVE); COLOR,URINE Yellow (YELLOW); KETONES,URINE >=160 (NEGATIVE); LEUKOCYTE ESTERASE ,URINE Negative (NEGATIVE); NITRITE, URINE Negative (NEGATIVE); PH,URINE 5.5 (5.0-8.0); PROTEIN,URINE Negative (NEGATIVE); UGLUCOSE 500 MG/DL mg/dL (NEGATIVE); UROBILINOGEN,URINE 0.2 EU/dL (0.2)
[2019-01-30] MEDS ORDERED: ONDANSETRON HCL/PF 4 MG/2 ML VIAL ONE (13:43)
[2019-01-30] MEDS ORDERED: MORPHINE SULFATE INJ 4 MG/ML DISP.SYRIN ONE (13:44)
[2019-01-30 13:46] LABS: BASOPHILS # (AUTO) 0.1 /CMM (0.0-0.2); BASOPHILS % (AUTO) 0.8 % (0.0-2.0); EOSINOPHILS % (AUTO) 0.5 % (0.0-6.0); HEMATOCRIT 39 % (33-45); HEMOGLOBIN 12.9 g/dL (11.5-14.8); LYMPHOCYTES # (AUTO) 2.4 /CMM (0.8-4.8); LYMPHOCYTES % (AUTO) 26.9 % (20.0-44.0); MEAN CORPUSCULAR HGB CONC 34 g/dl (31.0-36.0); MEAN CORPUSCULAR VOLUME 85 fL (82-100); MONOCYTES # (AUTO) 0.7 /CMM (0.1-1.30); MONOCYTES % (AUTO) 7.8 % (2.0-12.0); NEUTROPHILS # (AUTO) 5.8 /CMM (1.8-8.9); PLATELET COUNT (AUTO) 402 /CMM (150-450); RED BLOOD CELL COUNT(AUTO) 4.56 MIL/uL (4.0-5.2)
[2019-01-30 13:47] LABS: APPEARANCE,URINE Hazy (CLEAR)
[2019-01-30 13:53] LABS: BACTERIA,URINE None seen /HPF (None Seen); SQUAMOUS EPITHELIAL CELL,UR Few /HPF (None Seen); WBC,URINE 0-2 /HPF (0-3)
[2019-01-30 13:59] LABS: BILIRUBIN,DIRECT 0.1 mg/dL (0.0-0.2); BILIRUBIN,TOTAL 1.2 mg/dL (0.2-1.0); CALCIUM, SERUM 8.7 mg/dL (8.5-10.1); CREATININE 0.7 mg/dL (0.6-1.3); POTASSIUM 3.9 mmol/L (3.5-5.1); TOTAL PROTEIN, SERUM 6.9 g/dL (6.4-8.2)
[2019-01-30] MEDS ORDERED: IV NS 0.9% 1,000 ML BAG IV ONE ×2 (14:00→15:00)
[2019-01-30] MEDS ORDERED: MORPHINE SULFATE INJ 2 MG/ML DISP.SYRIN IV ONE ×2 (14:00→15:00)
[2019-01-30] MEDS ORDERED: ONDANSETRON HCL/PF 4 MG/2 ML VIAL IVP ONE (14:00)
[2019-01-30] MEDS ORDERED: INSU3INS8 SQ (14:14)
[2019-01-30] MEDS ORDERED: PARO40TA4 PO (14:14)
[2019-01-30] MEDS ORDERED: INSULIN REGULAR, HUMAN 100 UNIT/ML 10 ML VIAL SQ ONE (15:00)
[2019-01-30] MEDS ORDERED: MORPHINE SULFATE INJ 2 MG/ML DISP.SYRIN ONE (15:01)
[2019-01-30] MEDS ORDERED: INSULIN REGULAR, HUMAN 100 UNIT/ML 10 ML VIAL ONE (15:02)
--- NOTE | 2019-01-30 16:51 | NUR ---
PT RESTING AT THIS TIME.
--- NOTE | 2019-01-30 17:30 | NUR ---
PATIENT AWAKE AND ALERT ORIENTED X4, DENIES PAIN OR DISCOMFORT AT THIS TIME, NO SOB NOTED, PATIENT STATED "SHE FEELS BETTER AND SHE'S OK TO DRIVE." PIV REMOVED, RX PROVIDED. Patient discharged to home in stable condition. Written and verbal after care instructions given. Patient verbalizes understanding of instruction.
[2019-01-30 17:33] VITALS: BP 110/72
== END 2019-01-30 17:35 | disposition home or self-care (01) ==
LOC: ER 12:42
DX: K85.90 Acute pancreatitis without necrosis or infection, unspecified (principal); E11.9 Type 2 diabetes mellitus without complications; F41.9 Anxiety disorder, unspecified; F32.9 Major depressive disorder, single episode, unspecified; Z98.890 Other specified postprocedural states; Z90.49 Acquired absence of other specified parts of digestive tract; Z88.8 Allergy status to other drugs, medicaments and biological substances; Z79.4 Long term (current) use of insulin; Z79.899 Other long term (current) drug therapy
CPT/HCPCS: 36415; 74176; 80048; 80076; 81001; 83690; 84703; 85025; 96361; 96372; 96374; 96375; 96376; 99284; J1815; J2270 ×2; J2405; J7030 ×2; 81000-TC

== ENCOUNTER 2019-02-15 22:47 | Emergency (ER) | payer OTHER ==
[~2019-02-15] VITALS: Ht 172.7 cm; Wt 83.9 kg
[~2019-02-15 22:47] MED LIST changes: +INSU3INS8 SQ; +PARO40TA4 PO; -PAROXETINE HCL 40MG TABLET
--- NOTE | 2019-02-15 22:55 | NUR ---
PT BIBSELF C/O FEELING ANXIOUS X1 DAY. +CP, +SOB NORMALLY TAKES PAXIL, OFF MEDICATION X1 WEEK. PT AOX4. RESP EVEN AND UNLABORED. NAD NOTED. PT ON MONITOR IN BED 9. WILL CONTINUE TO MONITOR.
--- NOTE | 2019-02-15 23:25 | NUR ---
URINE COLLECTED AND SENT TO LAB
[2019-02-15 23:30] VITALS: BP 117/52
[2019-02-15] MEDS ORDERED: PAROXETINE HCL 20 MG TABLET PO SCH (23:30)
[2019-02-15 23:38] LABS: APPEARANCE,URINE Clear (CLEAR); BILIRUBIN,URINE Negative (NEGATIVE); BLOOD, URINE Moderate Ery/uL (NEGATIVE); COLOR,URINE Yellow (YELLOW); KETONES,URINE Trace (NEGATIVE); LEUKOCYTE ESTERASE ,URINE Negative (NEGATIVE); NITRITE, URINE Negative (NEGATIVE); PROTEIN,URINE Negative (NEGATIVE); UGLUCOSE 500 MG/DL mg/dL (NEGATIVE); UROBILINOGEN,URINE 0.2 EU/dL (0.2)
[2019-02-15] MEDS ORDERED: PAROXETINE HCL 20 MG TABLET ONE (23:40)
--- NOTE | 2019-02-15 23:50 | NUR ---
PAXIL 40MG RECEIVED FROM [facility]
[2019-02-16 00:01] LABS: BACTERIA,URINE Rare /HPF (None Seen); RBC,URINE 51-80 /HPF (0-2); SQUAMOUS EPITHELIAL CELL,UR Few /HPF (None Seen); WBC,URINE 0-2 /HPF (0-3)
--- NOTE | 2019-02-16 00:17 | NUR ---
Patient discharged to home in stable condition. Written and verbal after care instructions given. Patient verbalizes understanding of instruction. PT AMBULATORY WITH STEADY GAIT.
== END 2019-02-16 00:18 | disposition home or self-care (01) ==
LOC: ER 22:51
DX: F41.9 Anxiety disorder, unspecified (principal); B34.9 Viral infection, unspecified; F32.9 Major depressive disorder, single episode, unspecified; E11.9 Type 2 diabetes mellitus without complications; F10.10 Alcohol abuse, uncomplicated; Y90.9 Presence of alcohol in blood, level not specified; Z98.890 Other specified postprocedural states; Z90.49 Acquired absence of other specified parts of digestive tract; Z79.4 Long term (current) use of insulin; Z88.9 Allergy status to unspecified drugs, medicaments and biological substances
CPT/HCPCS: 81000-TC; 84703-TC

== ENCOUNTER 2019-03-24 20:52 | Emergency (ER) | payer OTHER ==
[~2019-03-24] VITALS: Ht 167.6 cm; Wt 86.2 kg
[2019-03-24 21:06] VITALS: BP 116/81
[2019-03-24] MEDS ORDERED: HYDROCODONE/APAP 5/325MG 1 EACH TABLET PO ONE (21:30)
[2019-03-24 21:31] LABS: APPEARANCE,URINE Clear (CLEAR); BILIRUBIN,URINE Negative (NEGATIVE); BLOOD, URINE Trace-intact Ery/uL (NEGATIVE); COLOR,URINE Yellow (YELLOW); KETONES,URINE Negative (NEGATIVE); LEUKOCYTE ESTERASE ,URINE Negative (NEGATIVE); NITRITE, URINE Negative (NEGATIVE); PROTEIN,URINE Negative (NEGATIVE); UGLUCOSE 500 MG/DL mg/dL (NEGATIVE); UROBILINOGEN,URINE 0.2 EU/dL (0.2)
[2019-03-24 21:32] LABS: BACTERIA,URINE None seen /HPF (None Seen); RBC,URINE 0-2 /HPF (0-2); SQUAMOUS EPITHELIAL CELL,UR Few /HPF (None Seen); WBC,URINE 0-2 /HPF (0-3)
[2019-03-24] MEDS ORDERED: HYDROCODONE/APAP 5/325MG 1 EACH TABLET ONE (21:36)
== END 2019-03-24 21:59 | disposition home or self-care (01) ==
LOC: ER 20:54
DX: M54.5 Low back pain (principal); E11.9 Type 2 diabetes mellitus without complications; F41.9 Anxiety disorder, unspecified; F32.9 Major depressive disorder, single episode, unspecified; Z98.890 Other specified postprocedural states; Z88.8 Allergy status to other drugs, medicaments and biological substances; Z79.4 Long term (current) use of insulin; Z79.899 Other long term (current) drug therapy
CPT/HCPCS: 81000-TC; 84703-TC; 87086-TC

== ENCOUNTER 2019-03-27 16:54 | Emergency (ER) | payer OTHER ==
[~2019-03-27] VITALS: Ht 167.6 cm; Wt 86.2 kg
[2019-03-27] MEDS ORDERED: MORPHINE SULFATE INJ 2 MG/ML DISP.SYRIN IV ONE (17:30)
[2019-03-27] MEDS ORDERED: IV NS 0.9% 1,000 ML BAG IV ONE (17:30)
[2019-03-27] MEDS ORDERED: ONDANSETRON HCL/PF 4 MG/2 ML VIAL IVP ONE (17:30)
--- NOTE | 2019-03-27 17:32 | NUR ---
C/O ABD PAIN, +N/V, DIARRHEA STARTED LAST NIGHT. DESCRIBES PAIN SHARP, 9/10, LEFT SIDE RADIATING TO BACK. VOMIT X 4 TODAY. HAS CHILLS, WITHOUT FEVER. NO OTHER COMPLAINTS AT THIS TIME. NO ACUTE DISTRESS NOTED. MADE COMFORTABLE AND READY FOR EVAL.
[2019-03-27] MEDS ORDERED: ONDANSETRON HCL/PF 4 MG/2 ML VIAL ONE ×2 (17:37→18:44)
[2019-03-27] MEDS ORDERED: MORPHINE SULFATE INJ 4 MG/ML DISP.SYRIN ONE (17:37)
[2019-03-27 17:38] LABS: BASOPHILS # (AUTO) 0.1 /CMM (0.0-0.2); BASOPHILS % (AUTO) 0.8 % (0.0-2.0); EOSINOPHILS % (AUTO) 0.9 % (0.0-6.0); HEMATOCRIT 41 % (33-45); LYMPHOCYTES % (AUTO) 28.7 % (20.0-44.0); MEAN CORPUSCULAR HGB CONC 34 g/dl (31.0-36.0); MEAN CORPUSCULAR VOLUME 82 fL (82-100); MONOCYTES # (AUTO) 0.8 /CMM (0.1-1.30); MONOCYTES % (AUTO) 7.8 % (2.0-12.0); NEUTROPHILS # (AUTO) 6.5 /CMM (1.8-8.9); NEUTROPHILS % (AUTO) 61.8 % (43.0-81.0); PLATELET COUNT (AUTO) 455 /CMM (150-450); RED BLOOD CELL COUNT(AUTO) 5.04 MIL/uL (4.0-5.2); WHITE BLOOD COUNT (AUTO) 10.5 K/uL (4.3-11.0)
[2019-03-27 17:40] LABS: APPEARANCE,URINE Clear (CLEAR); BILIRUBIN,URINE Negative (NEGATIVE); BLOOD, URINE Small Ery/uL (NEGATIVE); COLOR,URINE Yellow (YELLOW); KETONES,URINE 15 (NEGATIVE); LEUKOCYTE ESTERASE ,URINE Negative (NEGATIVE); NITRITE, URINE Positive (NEGATIVE); PROTEIN,URINE Negative (NEGATIVE); UGLUCOSE 500 MG/DL mg/dL (NEGATIVE); UROBILINOGEN,URINE 0.2 EU/dL (0.2)
[2019-03-27 17:48] LABS: BACTERIA,URINE 3+ /HPF (None Seen); SQUAMOUS EPITHELIAL CELL,UR Few /HPF (None Seen)
[2019-03-27 17:52] LABS: ALBUMIN 3.5 g/dL (3.4-5.0); BILIRUBIN,DIRECT 0.1 mg/dL (0.0-0.2); CALCIUM, SERUM 9.4 mg/dL (8.5-10.1); CREATININE 0.7 mg/dL (0.6-1.3); POTASSIUM 3.6 mmol/L (3.5-5.1)
[2019-03-27] MEDS ORDERED: INSULIN REGULAR, HUMAN 100 UNIT/ML 10 ML VIAL ONE (18:28)
[2019-03-27] MEDS ORDERED: CEFTRIAXONE 1GM BAG (ER ONLY) 50 ML IV ONE (18:28)
[2019-03-27] MEDS ORDERED: INSULIN REGULAR, HUMAN 100 UNIT/ML 10 ML VIAL SQ ONE (18:30)
[2019-03-27] MEDS ORDERED: CEFTRIAXONE 1GM BAG (ER ONLY) 1 GM/50 ML PIGGYBACK IV ONE (18:30)
--- NOTE | 2019-03-27 18:45 | NUR ---
PT STILL COMPLAINS OF PAIN, ASKING FOR MORE MEDS. MARCELA SLADE NOTIFIED.
[2019-03-27] MEDS ORDERED: KETOROLAC TROMETHAMINE INJ 30 MG/ML VIAL ONE (18:59)
[2019-03-27] MEDS ORDERED: ONDANSETRON HCL/PF 4 MG/2 ML VIAL IV ONE (19:00)
[2019-03-27] MEDS ORDERED: KETOROLAC TROMETHAMINE INJ 30 MG/ML VIAL IV ONE (19:00)
--- NOTE | 2019-03-27 19:42 | NUR ---
PT ASKING FOR PAIN MED PRIOR TO DISCHARGE. PA NOTIFIED
[2019-03-27] MEDS ORDERED: HYDROCODONE/APAP 5/325MG 1 EACH TABLET ONE (19:59)
[2019-03-27] MEDS ORDERED: HYDROCODONE/APAP 5/325MG 1 EACH TABLET PO ONE (20:00)
[2019-03-27 21:25] VITALS: BP 118/76
== END 2019-03-27 20:28 | disposition home or self-care (01) ==
LOC: ER 16:56
DX: N10 Acute pyelonephritis (principal); E11.65 Type 2 diabetes mellitus with hyperglycemia; R11.2 Nausea with vomiting, unspecified; F41.9 Anxiety disorder, unspecified; F32.9 Major depressive disorder, single episode, unspecified; Z98.890 Other specified postprocedural states; Z87.440 Personal history of urinary (tract) infections; Z79.4 Long term (current) use of insulin; Z88.9 Allergy status to unspecified drugs, medicaments and biological substances
CPT/HCPCS: 36415; 80048; 80076; 81001; 82962; 83690; 84703; 85025; 87040 ×2; 87077; 87086; 87186; 96361; 96365; 96372; 96375; 96376; 99283; J0696; J1815; J1885; J2270; J2405 ×2; J7030; 81000-TC

== ENCOUNTER 2019-04-12 17:51 | Emergency (ER) | payer OTHER ==
[~2019-04-12] VITALS: Ht 167.6 cm; Wt 83.9 kg
--- NOTE | 2019-04-12 17:55 | NUR ---
"CHRONIC ABDOMINAL PAIN, WORSE TODAY ASSOCIATED WITH NAUSEA" PT AAOX4, -SOB, NAD NOTED, VSS, PENDING MD VÁZQUEZ
[2019-04-12] MEDS ORDERED: ONDANSETRON HCL/PF 4 MG/2 ML VIAL IVP ONE (18:30)
[2019-04-12] MEDS ORDERED: MORPHINE SULFATE INJ 2 MG/ML DISP.SYRIN IV ONE (18:30)
[2019-04-12] MEDS ORDERED: IV NS 0.9% 1,000 ML BAG IV ONE (18:30)
[2019-04-12] MEDS ORDERED: ONDANSETRON HCL/PF 4 MG/2 ML VIAL ONE (18:36)
[2019-04-12] MEDS ORDERED: MORPHINE SULFATE INJ 4 MG/ML DISP.SYRIN ONE (18:37)
[2019-04-12 18:42] LABS: BASOPHILS # (AUTO) 0.1 /CMM (0.0-0.2); BASOPHILS % (AUTO) 0.9 % (0.0-2.0); EOSINOPHILS % (AUTO) 1.6 % (0.0-6.0); HEMATOCRIT 37 % (33-45); HEMOGLOBIN 12.3 g/dL (11.5-14.8); LYMPHOCYTES # (AUTO) 2.9 /CMM (0.8-4.8); LYMPHOCYTES % (AUTO) 35.2 % (20.0-44.0); MEAN CORPUSCULAR HGB CONC 33 g/dl (31.0-36.0); MEAN CORPUSCULAR VOLUME 83 fL (82-100); MONOCYTES # (AUTO) 0.9 /CMM (0.1-1.30); MONOCYTES % (AUTO) 10.3 % (2.0-12.0); NEUTROPHILS # (AUTO) 4.3 /CMM (1.8-8.9); PLATELET COUNT (AUTO) 404 /CMM (150-450); RED BLOOD CELL COUNT(AUTO) 4.42 MIL/uL (4.0-5.2); WHITE BLOOD COUNT (AUTO) 8.3 K/uL (4.3-11.0)
[2019-04-12 18:51] LABS: CREATININE 0.6 mg/dL (0.6-1.3); POTASSIUM 3.8 mmol/L (3.5-5.1)
[2019-04-12 18:55] LABS: BILIRUBIN,DIRECT 0.1 mg/dL (0.0-0.2); BILIRUBIN,TOTAL 0.6 mg/dL (0.2-1.0); TOTAL PROTEIN, SERUM 6.7 g/dL (6.4-8.2)
[2019-04-12 19:23] LABS: APPEARANCE,URINE Clear (CLEAR); BILIRUBIN,URINE Negative (NEGATIVE); BLOOD, URINE Trace-intact Ery/uL (NEGATIVE); COLOR,URINE Yellow (YELLOW); KETONES,URINE Trace (NEGATIVE); LEUKOCYTE ESTERASE ,URINE Negative (NEGATIVE); NITRITE, URINE Negative (NEGATIVE); PH,URINE 5.5 (5.0-8.0); PROTEIN,URINE Negative (NEGATIVE); UGLUCOSE 500 MG/DL mg/dL (NEGATIVE); UROBILINOGEN,URINE 0.2 EU/dL (0.2)
[2019-04-12] MEDS ORDERED: KETOROLAC TROMETHAMINE INJ 30 MG/ML VIAL ONE (19:56)
[2019-04-12] MEDS ORDERED: KETOROLAC TROMETHAMINE INJ 30 MG/ML VIAL IV ONE (20:00)
[2019-04-12 20:05] LABS: RBC,URINE 2-3/HPF /HPF (0-2)
[2019-04-12 20:06] LABS: BACTERIA,URINE Rare /HPF (None Seen); SQUAMOUS EPITHELIAL CELL,UR Few /HPF (None Seen); URINE AMORPHOUS URATE Few /HPF (None Seen); WBC,URINE 0-2 /HPF (0-3)
--- NOTE | 2019-04-12 20:25 | NUR ---
DC IV removed. Catheter intact and site benign. Pressure and 4x4 applied to site. No bleeding noted.Patient discharged to home in stable condition. Rx and Written and verbal after care instructions given. Patient verbalizes understanding of instruction.
[2019-04-12 20:26] VITALS: BP 124/76
== END 2019-04-12 20:27 | disposition home or self-care (01) ==
LOC: ER 17:55
DX: R10.12 Left upper quadrant pain (principal); R31.29 Other microscopic hematuria; R19.7 Diarrhea, unspecified; E11.9 Type 2 diabetes mellitus without complications; F41.9 Anxiety disorder, unspecified; F32.9 Major depressive disorder, single episode, unspecified; Z90.49 Acquired absence of other specified parts of digestive tract; Z98.890 Other specified postprocedural states; Z88.8 Allergy status to other drugs, medicaments and biological substances; Z79.4 Long term (current) use of insulin; Z79.899 Other long term (current) drug therapy
CPT/HCPCS: 36415; 80048; 80076; 81001; 83690; 84702; 85025; 87086; 96361; 96374; 96375; 99283; J1885; J2270; J2405; J7030; 81000-TC

== ENCOUNTER 2019-04-26 15:26 | Emergency (ER) | payer OTHER ==
[~2019-04-26] VITALS: Ht 172.7 cm; Wt 86.2 kg
[2019-04-26 17:08] LABS: BASOPHILS # (AUTO) 0.1 /CMM (0.0-0.2); EOSINOPHILS % (AUTO) 0.6 % (0.0-6.0); HEMATOCRIT 41 % (33-45); LYMPHOCYTES % (AUTO) 28.6 % (20.0-44.0); MEAN CORPUSCULAR HGB CONC 34 g/dl (31.0-36.0); MEAN CORPUSCULAR VOLUME 83 fL (82-100); MONOCYTES # (AUTO) 0.8 /CMM (0.1-1.30); MONOCYTES % (AUTO) 7.8 % (2.0-12.0); NEUTROPHILS # (AUTO) 6.6 /CMM (1.8-8.9); PLATELET COUNT (AUTO) 460 /CMM (150-450); RED BLOOD CELL COUNT(AUTO) 4.92 MIL/uL (4.0-5.2); WHITE BLOOD COUNT (AUTO) 10.6 K/uL (4.3-11.0)
[2019-04-26] MEDS: IV NS 0.9% 1,000 ML BAG IV ONE (17:15)
[2019-04-26 17:18] LABS: APPEARANCE,URINE Clear (CLEAR); BLOOD, URINE Small Ery/uL (NEGATIVE); COLOR,URINE Yellow (YELLOW); KETONES,URINE 40 (NEGATIVE); LEUKOCYTE ESTERASE ,URINE Negative (NEGATIVE); NITRITE, URINE Negative (NEGATIVE); PROTEIN,URINE 30 mg/dl (NEGATIVE); UGLUCOSE 500 MG/DL mg/dL (NEGATIVE); UROBILINOGEN,URINE 0.2 EU/dL (0.2)
[2019-04-26 17:19] LABS: ALBUMIN 3.4 g/dL (3.4-5.0); BILIRUBIN,DIRECT 0.2 mg/dL (0.0-0.2); BILIRUBIN,TOTAL 1.2 mg/dL (0.2-1.0); CALCIUM, SERUM 9.3 mg/dL (8.5-10.1); CREATININE 0.7 mg/dL (0.6-1.3); POTASSIUM 4.2 mmol/L (3.5-5.1); TOTAL PROTEIN, SERUM 7.7 g/dL (6.4-8.2)
[2019-04-26 17:21] LABS: BILIRUBIN,URINE NEGATIVE (NEGATIVE)
[2019-04-26] MEDS ORDERED: diphenhydrAMINE HCL 50 MG/ML VIAL ONE (17:30)
[2019-04-26] MEDS ORDERED: MORPHINE SULFATE INJ 4 MG/ML DISP.SYRIN ONE ×2 (17:30→19:29)
[2019-04-26] MEDS ORDERED: ONDANSETRON HCL/PF 4 MG/2 ML VIAL ONE (17:30)
[2019-04-26 17:32] LABS: WBC,URINE 0-2 /HPF (0-3)
[2019-04-26 17:33] LABS: BACTERIA,URINE Few /HPF (None Seen); SQUAMOUS EPITHELIAL CELL,UR Few /HPF (None Seen)
[2019-04-26] MEDS: MORPHINE SULFATE INJ 2 MG/ML DISP.SYRIN IV ONE ×2 (17:40→19:30)
[2019-04-26] MEDS: diphenhydrAMINE HCL 50 MG/ML VIAL IV ONE (17:40)
[2019-04-26] MEDS: ONDANSETRON HCL/PF 4 MG/2 ML VIAL IVP ONE (17:40)
[2019-04-26] MEDS ORDERED: CT SWABBABLE VALVE TRANS SET 1 EA INFUS.SET MC ONE (18:23)
[2019-04-26] MEDS ORDERED: IOHEXOL-300 100 ML VIAL IV ONE (18:23)
[2019-04-26] MEDS ORDERED: IV NS 0.9% 250 ML IV ONE (18:23)
[2019-04-26] MEDS ORDERED: MAG HYDROX/AL HYDROX/SIMETH 30 ML UDC ONE (18:24)
[2019-04-26] MEDS ORDERED: FAMOTIDINE/PF INJ 20 MG/2 ML VIAL IV ONE (18:24)
[2019-04-26] MEDS: MAG HYDROX/AL HYDROX/SIMETH 30 ML UDC PO ONE (18:45)
[2019-04-26] MEDS: FAMOTIDINE/PF INJ 20 MG/2 ML VIAL IV ONE (18:45)
[2019-04-26 20:49] VITALS: BP 121/63
== END 2019-04-26 20:50 | disposition home or self-care (01) ==
LOC: ER 15:26
DX: R10.12 Left upper quadrant pain (principal); R11.2 Nausea with vomiting, unspecified; R19.7 Diarrhea, unspecified; E11.9 Type 2 diabetes mellitus without complications; F41.9 Anxiety disorder, unspecified; F32.9 Major depressive disorder, single episode, unspecified; F10.10 Alcohol abuse, uncomplicated; Y90.9 Presence of alcohol in blood, level not specified; Z98.890 Other specified postprocedural states; Z90.49 Acquired absence of other specified parts of digestive tract; Z88.5 Allergy status to narcotic agent; Z87.440 Personal history of urinary (tract) infections; Z88.9 Allergy status to unspecified drugs, medicaments and biological substances
CPT/HCPCS: 36415; 74177; 80048; 80076; 81001; 83690; 84703; 85025; 96361; 96374; 96375; 96376; 99284; J1200; J2270 ×2; J2405; J3490; J7030; J7050; Q9967; 81000-TC

== ENCOUNTER 2019-05-15 21:13 | Emergency (ER) | payer OTHER ==
[~2019-05-15] VITALS: Ht 167.6 cm; Wt 88.5 kg
[2019-05-15] MEDS ORDERED: ONDANSETRON HCL/PF 4 MG/2 ML VIAL ONE (22:27)
[2019-05-15] MEDS ORDERED: MORPHINE SULFATE INJ 4 MG/ML DISP.SYRIN ONE (22:27)
[2019-05-15] MEDS ORDERED: MORPHINE SULFATE INJ 2 MG/ML DISP.SYRIN IV ONE (22:30)
[2019-05-15] MEDS ORDERED: IV NS 0.9% 1,000 ML BAG IV ONE (22:30)
[2019-05-15] MEDS ORDERED: ONDANSETRON HCL/PF 4 MG/2 ML VIAL IVP ONE (22:30)
[2019-05-15 22:31] LABS: BASOPHILS # (AUTO) 0.1 /CMM (0.0-0.2); BASOPHILS % (AUTO) 1.2 % (0.0-2.0); EOSINOPHILS % (AUTO) 1.3 % (0.0-6.0); HEMATOCRIT 38 % (33-45); HEMOGLOBIN 12.8 g/dL (11.5-14.8); LYMPHOCYTES # (AUTO) 2.7 /CMM (0.8-4.8); LYMPHOCYTES % (AUTO) 25.6 % (20.0-44.0); MEAN CORPUSCULAR HGB CONC 34 g/dl (31.0-36.0); MEAN CORPUSCULAR VOLUME 82 fL (82-100); MONOCYTES # (AUTO) 0.9 /CMM (0.1-1.30); MONOCYTES % (AUTO) 8.1 % (2.0-12.0); NEUTROPHILS # (AUTO) 6.9 /CMM (1.8-8.9); NEUTROPHILS % (AUTO) 63.8 % (43.0-81.0); PLATELET COUNT (AUTO) 451 /CMM (150-450); RED BLOOD CELL COUNT(AUTO) 4.56 MIL/uL (4.0-5.2); WHITE BLOOD COUNT (AUTO) 10.7 K/uL (4.3-11.0)
[2019-05-15 22:48] LABS: ALBUMIN 3.2 g/dL (3.4-5.0); BILIRUBIN,DIRECT 0.1 mg/dL (0.0-0.2); BILIRUBIN,TOTAL 0.5 mg/dL (0.2-1.0); CALCIUM, SERUM 8.9 mg/dL (8.5-10.1); CREATININE 0.8 mg/dL (0.6-1.3); POTASSIUM 4.7 mmol/L (3.5-5.1); TOTAL PROTEIN, SERUM 7.5 g/dL (6.4-8.2)
[2019-05-15] MEDS ORDERED: HYDROMORPHONE 1 MG/1 ML DISP.SYRIN ONE (23:39)
[2019-05-16] MEDS ORDERED: HYDROMORPHONE 1 MG/1 ML DISP.SYRIN IV ONE
[2019-05-16] MEDS ORDERED: phenytoin SODIUM IV 250 MG/5 ML VIAL IV ONE
[2019-05-16 01:25] VITALS: BP 113/73
== END 2019-05-16 00:35 | disposition home or self-care (01) ==
LOC: ER 21:14
DX: R10.12 Left upper quadrant pain (principal); R10.13 Epigastric pain; E11.65 Type 2 diabetes mellitus with hyperglycemia; F41.9 Anxiety disorder, unspecified; F32.9 Major depressive disorder, single episode, unspecified; Z98.890 Other specified postprocedural states; Z90.49 Acquired absence of other specified parts of digestive tract; Z88.6 Allergy status to analgesic agent; Z88.8 Allergy status to other drugs, medicaments and biological substances; Z87.440 Personal history of urinary (tract) infections; Z79.4 Long term (current) use of insulin; Z79.899 Other long term (current) drug therapy
CPT/HCPCS: 36415; 80048; 80076; 83690; 85025; 96361; 96374; 96375; 99283; J1170; J2270; J2405; J7030

== ENCOUNTER 2019-05-26 16:34 | Inpatient (IN) | payer OTHER ==
[~2019-05-26] VITALS: Ht 172.7 cm; Wt 91.2 kg
--- NOTE | 2019-05-26 16:43 | NUR ---
PT WILTON RA 77 From Home "was found by children when they came home from school at around 4pm called 911 BS low on arrival given D10 repeat BS 180 PER REPORT COUSIN PERFORM CPR" PT IS AAOX1, NOT IN RESPIRATORY DISTRESS, HOOKED TO MONITOR, V/S STABLE, KEPT RESTED AND COMFORTABLE, WILL CONTINUE TO MONITOR.
--- NOTE | 2019-05-26 16:45 | NUR ---
SEEN AND EXAMINED BY .
[2019-05-26] MEDS ORDERED: IV D5/0.45 NACL 1,000 ML IV ONE (16:49)
--- NOTE | 2019-05-26 16:49 | NUR ---
IV LINE ESTABLISHED, BLOOD DRAWN AND SENT TO LAB.
[2019-05-26 16:59] LABS: BASOPHILS # (AUTO) 0.1 /CMM (0.0-0.2); BASOPHILS % (AUTO) 0.8 % (0.0-2.0); EOSINOPHILS % (AUTO) 0.3 % (0.0-6.0); HEMATOCRIT 41 % (33-45); HEMOGLOBIN 13.6 g/dL (11.5-14.8); LYMPHOCYTES # (AUTO) 2.1 /CMM (0.8-4.8); LYMPHOCYTES % (AUTO) 14.5 % (20.0-44.0); MEAN CORPUSCULAR HGB CONC 34 g/dl (31.0-36.0); MEAN CORPUSCULAR VOLUME 82 fL (82-100); MONOCYTES # (AUTO) 1.4 /CMM (0.1-1.30); MONOCYTES % (AUTO) 9.7 % (2.0-12.0); NEUTROPHILS # (AUTO) 10.9 /CMM (1.8-8.9); NEUTROPHILS % (AUTO) 74.7 % (43.0-81.0); PLATELET COUNT (AUTO) 455 /CMM (150-450); RED BLOOD CELL COUNT(AUTO) 4.96 MIL/uL (4.0-5.2); WHITE BLOOD COUNT (AUTO) 14.6 K/uL (4.3-11.0)
--- NOTE | 2019-05-26 17:00 | NUR ---
URINE SPECIMEN COLLECTED AND SENT TO LAB.
--- NOTE | 2019-05-26 17:05 | NUR ---
KAIWHAKAHAERE AT BEDSIDE FOR XRAY.
[2019-05-26 17:09] LABS: APPEARANCE,URINE Clear (CLEAR); BILIRUBIN,URINE Negative (NEGATIVE); BLOOD, URINE Small Ery/uL (NEGATIVE); COLOR,URINE Yellow (YELLOW); KETONES,URINE Negative (NEGATIVE); LEUKOCYTE ESTERASE ,URINE Negative (NEGATIVE); NITRITE, URINE Negative (NEGATIVE); PROTEIN,URINE 30 mg/dl (NEGATIVE); UGLUCOSE 500 MG/DL mg/dL (NEGATIVE); UROBILINOGEN,URINE 0.2 EU/dL (0.2)
[2019-05-26 17:11] LABS: ALBUMIN 3.7 g/dL (3.4-5.0); BILIRUBIN,DIRECT 0.1 mg/dL (0.0-0.2); BILIRUBIN,TOTAL 0.7 mg/dL (0.2-1.0); CALCIUM, SERUM 9.8 mg/dL (8.5-10.1); CREATININE 0.7 mg/dL (0.6-1.3); TOTAL PROTEIN, SERUM 8.1 g/dL (6.4-8.2)
[2019-05-26 17:12] LABS: POTASSIUM 2.8 mmol/L (3.5-5.1)
[2019-05-26 17:19] LABS: BACTERIA,URINE Few /HPF (None Seen); SQUAMOUS EPITHELIAL CELL,UR Few /HPF (None Seen); WBC,URINE 0-2 /HPF (0-3)
[2019-05-26 17:20] LABS: MUCUS,URINE Few /LPF (None Seen)
--- NOTE | 2019-05-26 17:20 | NUR ---
FOOD TRAY PROVIDED.
[2019-05-26] MEDS ORDERED: INSU100V7 SQ (17:21)
[2019-05-26] MEDS ORDERED: INSU100V3 SQ (17:21)
[2019-05-26] MEDS ORDERED: GABA-534 PO (17:21)
[2019-05-26] MEDS ORDERED: POTASSIUM CL. PREMIX PERIPHER. 50 ML ONE ×2 (17:34→17:38)
[2019-05-26] MEDS: POTASSIUM CL. PREMIX PERIPHER. 50 ML IV SCH ×2 (17:43→18:40)
--- NOTE | 2019-05-26 20:00 | NUR ---
BEDSIDE REPORT DONE. PT IS RESTING COMFORTABLY IN BED. A/OX3. ON ROOM AIR, BREATHING EVEN AND UNLABORED. IN NO ACUTE DISTRESS. D5 1/2 NS CURRENTLY INFUSING TO RAC. BGL CHECKED = 139. CONNECTED TO DIRECTOR CLOUD TRANSFORMATION AND PULSE OX. AWAITING TELE BED
--- NOTE | 2019-05-26 21:12 | NUR ---
REPORT GIVEN TO KRISTOFER DAY FOR CONTINUATION OF CARE.
[2019-05-26] MEDS ORDERED: IV D5/0.45 NACL 1,000 ML IV PRN (21:28)
--- NOTE | 2019-05-26 21:28 | NUR ---
PT TO 3W VIA VANESA GUERRERO PROTOCOL WITH EMT AND RN
[2019-05-26] MEDS ORDERED: Z GUARD REMEDY 2 OZ OINT TP PRN (21:30)
[2019-05-26] MEDS ORDERED: MAGNESIUM HYDROXIDE 30 ML UDC PO PRN (21:30)
[2019-05-26] MEDS ORDERED: HYDROCODONE/APAP 5/325MG 1 EACH TABLET PO PRN (21:30)
[2019-05-26] MEDS ORDERED: MAG HYDROX/AL HYDROX/SIMETH 30 ML UDC PO PRN (21:30)
[2019-05-26] MEDS ORDERED: DEXTROSE 50%-WATER 50 ML DISP.SYRIN IV PRN (21:30)
[2019-05-26] MEDS ORDERED: ACETAMINOPHEN 325 MG TABLET PO PRN (21:30)
--- NOTE | 2019-05-26 21:40 | NUR ---
MOVED PT TO ROOM 316-2 VIA ACLS PROTOCOL IN STABLE CONDITION
[2019-05-26] MEDS ORDERED: GABAPENTIN 300 MG CAPSULE PO SCH (22:00)
[2019-05-26] MEDS ORDERED: PAROXETINE HCL 20 MG TABLET PO SCH (22:00)
[2019-05-26] MEDS: ONDANSETRON HCL/PF 4 MG/2 ML VIAL IVP PRN (22:29)
[2019-05-26 23:26] VITALS: BP 84/52
[2019-05-26 23:29] VITALS: BP_SYST 116; BP_SYST 86; BP_DIAS 61; BP_DIAS 64
[2019-05-27] VITALS: BP 97/60
[2019-05-27] MEDS: BLOOD SUGAR DIAGNOSTIC 1 EACH STRIP IN SCH ×5 (01:00→13:03)
--- NOTE | 2019-05-27 01:20 | NUR ---
Soy HERNANDEZ CALLED REGARDING THE BLOOD SUGAR OREDERED 241 NEW ORDERS
[2019-05-27] MEDS ORDERED: IV NS 0.9% 1,000 ML IV PRN (03:00)
[2019-05-27 03:57] VITALS: BP 97/58
[2019-05-27 04:00] VITALS: BP 97/58
[2019-05-27] MEDS: ONDANSETRON HCL/PF 4 MG/2 ML VIAL IVP PRN (04:50)
--- NOTE | 2019-05-27 05:10 | NUR ---
CALL PUT OUT FOR KRYSTAL HERNANDEZ REGARDING THE 5AM BLOOD SUGAR 316 WAITING FOR CALL RETURN
--- NOTE | 2019-05-27 06:22 | NUR ---
ENDING NOTES: AMBULATED TO THE BATHROOM AND STEAD ON HER LEGS. SHE WAS NAUSEATED X2 THIS NIGHT AND HAD RELIEF WITH ZOFRAN ORDERED. SHE SLEPT WELL. ON THE MONITOR SHE IS SR HEART RATE 86. BLOOR SUGAR AT 5AM WAS 316 CALL PLACED TO KRYSTAL HERNANDEZ WAITING FOR CALL BACK
--- NOTE | 2019-05-27 07:38 | NUR ---
DIRECTOR AUTOMOTIVE OPENING NOTES Patient remains on room air, no sob noted, a/o x3 at this time. Patient sleeping comfortably easily awakened. R AC 18 NS 75 ml per hour. Bed at the lowest setting, call light within reach, side rails up x2.
[2019-05-27 07:46] LABS: BASOPHILS % (AUTO) 0.5 % (0.0-2.0); EOSINOPHILS % (AUTO) 0.9 % (0.0-6.0); HEMATOCRIT 38 % (33-45); HEMOGLOBIN 12.6 g/dL (11.5-14.8); LYMPHOCYTES # (AUTO) 2.9 /CMM (0.8-4.8); LYMPHOCYTES % (AUTO) 27.3 % (20.0-44.0); MEAN CORPUSCULAR HGB CONC 33 g/dl (31.0-36.0); MEAN CORPUSCULAR VOLUME 83 fL (82-100); MONOCYTES # (AUTO) 0.9 /CMM (0.1-1.30); MONOCYTES % (AUTO) 8.4 % (2.0-12.0); NEUTROPHILS # (AUTO) 6.6 /CMM (1.8-8.9); NEUTROPHILS % (AUTO) 62.9 % (43.0-81.0); PLATELET COUNT (AUTO) 448 /CMM (150-450); RED BLOOD CELL COUNT(AUTO) 4.58 MIL/uL (4.0-5.2); WHITE BLOOD COUNT (AUTO) 10.5 K/uL (4.3-11.0)
[2019-05-27 08:00] VITALS: BP 122/74
[2019-05-27 08:00] LABS: CALCIUM, SERUM 8.6 mg/dL (8.5-10.1); CREATININE 0.8 mg/dL (0.6-1.3); MAGNESIUM 1.7 mg/dL (1.8-2.4); PHOSPHORUS 3.2 mg/dL (2.5-4.9); POTASSIUM 3.7 mmol/L (3.5-5.1)
[2019-05-27 08:32] LABS: THYROID STIMULATING HORMONE 0.632 uIU/mL (0.358-3.74)
[2019-05-27] MEDS ORDERED: DEXTROSE 50%-WATER 50 ML DISP.SYRIN IV PRN (10:00)
[2019-05-27] MEDS: INSULIN REGULAR, HUMAN 100 UNIT/ML 3 ML VIAL SQ PRN ×2 (10:43→12:29)
[2019-05-27] MEDS ORDERED: LORAZEPAM INJ 2 MG/ML VIAL IV PRN (11:02)
[2019-05-27] MEDS: Magnesium 1GM/D5W 100ML PREMIX 100 ML IV SCH ×2 (11:13→12:17)
[2019-05-27] MEDS ORDERED: INSU100I26 SQ (12:52)
[2019-05-27] MEDS ORDERED: ATOR40TA PO (12:52)
[2019-05-27] MEDS ORDERED: INSU100I33 SQ (12:52)
--- NOTE | 2019-05-27 16:03 | NUR ---
spa assistant manager notes Patient discharged at this time, no sob noted, vital signs stable. Patient signed all paperwork, and has no further questions with her discharge order. Patient leaving with all her valuable items in hand. Patient leaving with . IV line removed with minimal bleeding. No photos necessary since she has no wounds.
== END 2019-05-27 16:00 | disposition home or self-care (01) | DRG 420 ==
LOC: ER 16:37 → TELE 20:40 → MED 05-27 07:59
PROVIDERS: ADMIT Nurse Practitioner Acute Care; ATTEND Nurse Practitioner Acute Care
DX: E11.649 Type 2 diabetes mellitus with hypoglycemia without coma (principal); R65.10 Systemic inflammatory response syndrome (SIRS) of non-infectious origin without acute organ dysfunction; D47.3 Essential (hemorrhagic) thrombocythemia; D72.829 Elevated white blood cell count, unspecified; R55 Syncope and collapse; T38.3X5A Adverse effect of insulin and oral hypoglycemic [antidiabetic] drugs, initial encounter; Y92.018 Other place in single-family (private) house as the place of occurrence of the external cause; E87.6 Hypokalemia; J98.11 Atelectasis
CPT/HCPCS: 36415; 71045-TC; 80048-TC; 80061-TC; 80076-TC; 81000-TC; 82962-TC; 83735-TC; 84100-TC; 84443-TC; 84484-TC; 84703-TC; 85025-TC; 87081-TC; 93307-TC; 93880-TC; G0378; J1815; J2405; J3475; J3480; J3490; J7030

== ENCOUNTER 2019-05-30 15:52 | Emergency (ER) | payer OTHER ==
[~2019-05-30] VITALS: Ht 167.6 cm; Wt 88.5 kg
[~2019-05-30 15:52] MED LIST changes: +ATOR40TA PO; +GABA-534 PO; +INSU100I26 SQ; +INSU100I33 SQ; -INSU3INS8 SQ
--- NOTE | 2019-05-30 16:14 | NUR ---
"LOWER BACK PAIN R/T LOWER ABDOMEN, DYSURIA SINCE YESTERDAY" PT AAOX4, -SOB, NAD NOTED, VSS ,PENDING MD VÁZQUEZ
[2019-05-30] MEDS ORDERED: PHENAZOPYRIDINE HCL 200 MG TABLET ONE (16:56)
[2019-05-30] MEDS ORDERED: IBUPROFEN 600 MG TABLET PO ONE ×2 (16:56→17:00)
[2019-05-30] MEDS ORDERED: ONDANSETRON 4 MG TAB.RAPDIS ONE (16:56)
[2019-05-30 16:58] LABS: APPEARANCE,URINE Clear (CLEAR); BILIRUBIN,URINE Negative (NEGATIVE); BLOOD, URINE Moderate Ery/uL (NEGATIVE); COLOR,URINE Yellow (YELLOW); KETONES,URINE Negative (NEGATIVE); LEUKOCYTE ESTERASE ,URINE Small (NEGATIVE); NITRITE, URINE Negative (NEGATIVE); PROTEIN,URINE 100 mg/dl (NEGATIVE); UGLUCOSE 500 MG/DL mg/dL (NEGATIVE); UROBILINOGEN,URINE 0.2 EU/dL (0.2)
--- NOTE | 2019-05-30 16:59 | NUR ---
224MG/DL BLOOD SUGAR
[2019-05-30] MEDS ORDERED: PHENAZOPYRIDINE HCL 200 MG TABLET PO ONE (17:00)
[2019-05-30] MEDS ORDERED: ONDANSETRON 4 MG TAB.RAPDIS SL ONE (17:00)
[2019-05-30 17:10] VITALS: BP 110/65
[2019-05-30 17:10] LABS: BACTERIA,URINE 1+ /HPF (None Seen); SQUAMOUS EPITHELIAL CELL,UR Few /HPF (None Seen)
[2019-05-30] MEDS ORDERED: LIDOCAINE /MPF 1% VIAL 5 ML VIAL ONE (17:27)
[2019-05-30] MEDS ORDERED: MORPHINE SULFATE INJ 4 MG/ML DISP.SYRIN ONE (17:28)
[2019-05-30] MEDS ORDERED: CEFTRIAXONE 1 G VIAL ONE (17:28)
[2019-05-30] MEDS ORDERED: MORPHINE SULFATE INJ 4 MG/ML DISP.SYRIN IM ONE (17:30)
[2019-05-30] MEDS ORDERED: CEFTRIAXONE 1 G VIAL IM ONE (17:30)
--- NOTE | 2019-05-30 17:42 | NUR ---
Patient discharged to home in stable condition. Written and verbal after care instructions given. Patient verbalizes understanding of instruction.
== END 2019-05-30 17:45 | disposition home or self-care (01) ==
LOC: ER 16:00
DX: N39.0 Urinary tract infection, site not specified (principal); E11.65 Type 2 diabetes mellitus with hyperglycemia; F41.9 Anxiety disorder, unspecified; F32.9 Major depressive disorder, single episode, unspecified; F10.10 Alcohol abuse, uncomplicated; Y90.9 Presence of alcohol in blood, level not specified; Z90.49 Acquired absence of other specified parts of digestive tract; Z98.890 Other specified postprocedural states; Z88.9 Allergy status to unspecified drugs, medicaments and biological substances; Z79.4 Long term (current) use of insulin
CPT/HCPCS: 81001; 82962; 84703; 87077; 87086; 96372 ×2; 99284; J0696; J2270; J3490; Q0162; 81000-TC

== ENCOUNTER 2019-06-19 18:51 | Emergency (ER) | payer OTHER ==
[~2019-06-19] VITALS: Ht 167.6 cm; Wt 93.0 kg
--- NOTE | 2019-06-19 20:31 | NUR ---
urine sent to lab
[2019-06-19 20:42] LABS: APPEARANCE,URINE Clear (CLEAR); BILIRUBIN,URINE Negative (NEGATIVE); BLOOD, URINE Trace-intact Ery/uL (NEGATIVE); COLOR,URINE Yellow (YELLOW); KETONES,URINE Negative (NEGATIVE); LEUKOCYTE ESTERASE ,URINE Negative (NEGATIVE); NITRITE, URINE Negative (NEGATIVE); PROTEIN,URINE Negative (NEGATIVE); UGLUCOSE 500 MG/DL mg/dL (NEGATIVE)
[2019-06-19 20:52] LABS: BACTERIA,URINE Few /HPF (None Seen); SQUAMOUS EPITHELIAL CELL,UR Few /HPF (None Seen)
[2019-06-19 20:53] LABS: RBC,URINE 0-2 /HPF (0-2); WBC,URINE 0-2 /HPF (0-3)
--- NOTE | 2019-06-19 21:04 | NUR ---
Pt came into ER with c/o of lower back pain. When providing a urine sample, she stated that there was no pain on urination. 2 weeks ago she had UTI. AAOx4. no SOB. Breathing even and unlabored. Will continue to monitor.
[2019-06-19] MEDS ORDERED: MORPHINE SULFATE INJ 4 MG/ML DISP.SYRIN ONE (21:06)
[2019-06-19] MEDS ORDERED: diphenhydrAMINE HCL 25 MG CAPSULE ONE (21:06)
--- NOTE | 2019-06-19 21:18 | NUR ---
Instructed Patient Not to drive, she states that she will be driven by . Patient discharged to home in stable condition. Written and verbal after care instructions given. Patient verbalizes understanding of instruction.
[2019-06-19 21:19] VITALS: BP 128/72
[2019-06-19] MEDS ORDERED: MORPHINE SULFATE INJ 2 MG/ML DISP.SYRIN IM ONE (21:30)
[2019-06-19] MEDS ORDERED: DIPHENHYDRAMINE HCL 12.5 MG/5 ML UDC PO ONE (21:30)
== END 2019-06-19 21:20 | disposition home or self-care (01) ==
LOC: ER 18:55
DX: M54.5 Low back pain (principal); E11.9 Type 2 diabetes mellitus without complications; F41.9 Anxiety disorder, unspecified; F32.9 Major depressive disorder, single episode, unspecified; F10.10 Alcohol abuse, uncomplicated; Y90.9 Presence of alcohol in blood, level not specified; Z90.49 Acquired absence of other specified parts of digestive tract; Z98.890 Other specified postprocedural states; Z87.440 Personal history of urinary (tract) infections; Z79.4 Long term (current) use of insulin; Z79.899 Other long term (current) drug therapy; Z88.9 Allergy status to unspecified drugs, medicaments and biological substances
CPT/HCPCS: 81001; 84703; 87086; 96372; 99283; J2270; Q0163 ×2; 81000-TC

== ENCOUNTER 2019-06-28 16:33 | Emergency (ER) | payer OTHER ==
[~2019-06-28] VITALS: Ht 167.6 cm; Wt 95.3 kg
[2019-06-28 17:39] LABS: BASOPHILS # (AUTO) 0.1 /CMM (0.0-0.2); BASOPHILS % (AUTO) 0.7 % (0.0-2.0); EOSINOPHILS % (AUTO) 1.5 % (0.0-6.0); HEMATOCRIT 37 % (33-45); HEMOGLOBIN 12.2 g/dL (11.5-14.8); LYMPHOCYTES # (AUTO) 2.9 /CMM (0.8-4.8); LYMPHOCYTES % (AUTO) 28.4 % (20.0-44.0); MEAN CORPUSCULAR HGB CONC 33 g/dl (31.0-36.0); MEAN CORPUSCULAR VOLUME 83 fL (82-100); MONOCYTES % (AUTO) 9.6 % (2.0-12.0); NEUTROPHILS # (AUTO) 6.2 /CMM (1.8-8.9); NEUTROPHILS % (AUTO) 59.8 % (43.0-81.0); PLATELET COUNT (AUTO) 438 /CMM (150-450); RED BLOOD CELL COUNT(AUTO) 4.42 MIL/uL (4.0-5.2); WHITE BLOOD COUNT (AUTO) 10.4 K/uL (4.3-11.0)
[2019-06-28 17:40] LABS: APPEARANCE,URINE Clear (CLEAR); BILIRUBIN,URINE Negative (NEGATIVE); BLOOD, URINE Negative Ery/uL (NEGATIVE); COLOR,URINE Yellow (YELLOW); KETONES,URINE Negative (NEGATIVE); LEUKOCYTE ESTERASE ,URINE Negative (NEGATIVE); NITRITE, URINE Negative (NEGATIVE); PH,URINE 5.5 (5.0-8.0); PROTEIN,URINE Negative (NEGATIVE); UGLUCOSE 500 MG/DL mg/dL (NEGATIVE); UROBILINOGEN,URINE 0.2 EU/dL (0.2)
[2019-06-28] MEDS ORDERED: PANTOPRAZOLE 40 MG VIAL ONE (17:42)
[2019-06-28] MEDS ORDERED: ONDANSETRON HCL/PF 4 MG/2 ML VIAL ONE (17:42)
[2019-06-28] MEDS ORDERED: MORPHINE SULFATE INJ 2 MG/ML DISP.SYRIN ONE (17:42)
[2019-06-28] MEDS: IV NS 0.9% 1,000 ML BAG IV ONE (17:46)
[2019-06-28] MEDS: ONDANSETRON HCL/PF 4 MG/2 ML VIAL IVP ONE (17:46)
[2019-06-28 17:47] LABS: CALCIUM, SERUM 8.8 mg/dL (8.5-10.1); CREATININE 0.8 mg/dL (0.6-1.3); POTASSIUM 3.8 mmol/L (3.5-5.1)
[2019-06-28] MEDS: MORPHINE SULFATE INJ 2 MG/ML DISP.SYRIN IV ONE (17:48)
[2019-06-28] MEDS: PANTOPRAZOLE 40 MG VIAL IV ONE (17:50)
--- NOTE | 2019-06-28 17:53 | NUR ---
ABDOMINAL PAIN AND VOMITING STARTED LAST NIGHT. PT AAOX4, VSS. RR EVEN & UNLABORED. DENIES CP, SOB, DIZZINESS, WEAKNESS @ THIS TIME. PT SEEN & EVAL'D BY DR. MCDOWELL. MEDICATED FOR PAIN ORDERED, PT LAKSHMI WELL. WILL CONT TO MONITOR.
[2019-06-28 17:54] LABS: ALBUMIN 3.4 g/dL (3.4-5.0); BILIRUBIN,DIRECT 0.1 mg/dL (0.0-0.2); BILIRUBIN,TOTAL 0.3 mg/dL (0.2-1.0); TOTAL PROTEIN, SERUM 7.2 g/dL (6.4-8.2)
[2019-06-28 19:39] VITALS: BP 124/70
== END 2019-06-28 19:40 | disposition home or self-care (01) ==
LOC: ER 16:35
DX: R10.13 Epigastric pain (principal); R11.10 Vomiting, unspecified; E11.9 Type 2 diabetes mellitus without complications; F41.9 Anxiety disorder, unspecified; F32.9 Major depressive disorder, single episode, unspecified; Z98.890 Other specified postprocedural states; Z90.49 Acquired absence of other specified parts of digestive tract; Z87.440 Personal history of urinary (tract) infections; Z88.5 Allergy status to narcotic agent; Z79.4 Long term (current) use of insulin; Z79.899 Other long term (current) drug therapy; Z88.9 Allergy status to unspecified drugs, medicaments and biological substances
CPT/HCPCS: 36415; 80048; 80076; 81001; 83690; 84702; 85025; 96361; 96374; 96375; 99283; C9113; J2270; J2405; J7030; 81000-TC

== ENCOUNTER 2019-08-09 21:59 | Emergency (ER) | payer OTHER ==
--- NOTE | 2019-08-09 22:10 | NUR ---
called for triage, no answer.
--- NOTE | 2019-08-09 22:14 | NUR ---
called for triage, no answer.
--- NOTE | 2019-08-09 22:19 | NUR ---
called for triage, no answer.
--- NOTE | 2019-08-09 23:01 | NUR ---
called for triage, no answer.
== END 2019-08-09 23:03 | disposition left against medical advice (07) ==
LOC: ER 22:04
DX: Z53.21 Procedure and treatment not carried out due to patient leaving prior to being seen by health care provider (principal)

== ENCOUNTER 2019-08-19 21:20 | Emergency (ER) | payer OTHER ==
[~2019-08-19] VITALS: Ht 167.6 cm; Wt 93.0 kg
--- NOTE | 2019-08-19 21:55 | NUR ---
URINE COLLECTED AND SENT TO LAB
--- NOTE | 2019-08-19 22:00 | NUR ---
PT BIBSELF C/O LEFT UPPER QUADRANT PAIN RADIATING TO L LOWER EXT X2 DAYS. PT ALSO C/O NAUSEA AND DYSURIA. PT STATES LAST BM LAST NIGHT, NORMAL APPEARANCE. PT AAOX4. RESPIRATIONS EVEN AND UNLABORED. SKIN WARM AND INTACT. AMBULATORY WITH STEADY GAIT. NO ACUTE DISTRESS NOTED AT THIS TIME. WILL CONTINUE TO MONITOR.
[2019-08-19] MEDS ORDERED: IV NS 0.9% 1,000 ML BAG IV ONE (22:30)
[2019-08-19] MEDS ORDERED: ONDANSETRON HCL/PF 4 MG/2 ML VIAL IVP ONE (22:30)
[2019-08-19] MEDS ORDERED: KETOROLAC TROMETHAMINE INJ 30 MG/ML VIAL ONE (22:30)
[2019-08-19] MEDS ORDERED: KETOROLAC TROMETHAMINE INJ 30 MG/ML VIAL IV ONE (22:30)
[2019-08-19] MEDS ORDERED: ONDANSETRON HCL/PF 4 MG/2 ML VIAL ONE (22:30)
--- NOTE | 2019-08-19 22:34 | NUR ---
IV INITIATED RAC 18G. LABS DRAWN FROM SITE. MATHEMATICS TECHNICIAN AT BEDSIDE FOR COLLECTION. IV INTACT AND PATENT, PLACED ON SALINE LOCK
[2019-08-19 22:41] LABS: BASOPHILS # (AUTO) 0.1 /CMM (0.0-0.2); BASOPHILS % (AUTO) 1.1 % (0.0-2.0); EOSINOPHILS % (AUTO) 1.1 % (0.0-6.0); HEMATOCRIT 37 % (33-45); HEMOGLOBIN 12.3 g/dL (11.5-14.8); LYMPHOCYTES % (AUTO) 27.7 % (20.0-44.0); MEAN CORPUSCULAR HGB CONC 33 g/dl (31.0-36.0); MEAN CORPUSCULAR VOLUME 82 fL (82-100); MONOCYTES # (AUTO) 0.8 /CMM (0.1-1.30); MONOCYTES % (AUTO) 7.6 % (2.0-12.0); NEUTROPHILS # (AUTO) 6.7 /CMM (1.8-8.9); NEUTROPHILS % (AUTO) 62.5 % (43.0-81.0); PLATELET COUNT (AUTO) 415 /CMM (150-450); RED BLOOD CELL COUNT(AUTO) 4.52 MIL/uL (4.0-5.2); WHITE BLOOD COUNT (AUTO) 10.6 K/uL (4.3-11.0)
[2019-08-19 22:50] LABS: APPEARANCE,URINE Clear (CLEAR); BILIRUBIN,URINE Negative (NEGATIVE); BLOOD, URINE Small Ery/uL (NEGATIVE); COLOR,URINE Yellow (YELLOW); KETONES,URINE Negative (NEGATIVE); LEUKOCYTE ESTERASE ,URINE Negative (NEGATIVE); NITRITE, URINE Negative (NEGATIVE); PROTEIN,URINE Negative (NEGATIVE); UGLUCOSE 500 MG/DL mg/dL (NEGATIVE); UROBILINOGEN,URINE 0.2 EU/dL (0.2)
--- NOTE | 2019-08-19 22:55 | NUR ---
PT BROUGHT BY RADIOLOGY TO CT
[2019-08-19 23:10] LABS: BACTERIA,URINE Few /HPF (None Seen); SQUAMOUS EPITHELIAL CELL,UR Few /HPF (None Seen); WBC,URINE NONE SEEN /HPF (0-3)
--- NOTE | 2019-08-19 23:15 | NUR ---
PT STILL C/O ABDOMINAL PAIN, STATES NO RELIEF FROM TORADAL. ER AWARE
[2019-08-19 23:20] LABS: CALCIUM, SERUM 8.7 mg/dL (8.5-10.1); CARBON DIOXIDE 26 mmol/L (21-32); CHLORIDE 103 mmol/L (98-107); CREATININE 0.8 mg/dL (0.6-1.3); GLUCOSE 336 mg/dL (74-106); POTASSIUM 3.6 mmol/L (3.5-5.1); SODIUM SERUM 139 mmol/L (136-145); UREA NITROGEN, BLOOD 12 mg/dL (7-18)
[2019-08-19] MEDS ORDERED: MORPHINE SULFATE INJ 4 MG/ML DISP.SYRIN ONE (23:26)
[2019-08-19 23:27] LABS: ALANINE AMINOTRANSFERASE 10 U/L (12-78); ALBUMIN 2.9 g/dL (3.4-5.0); ALKALINE PHOSPHATASE 84 U/L (46-116); ASPARTATE AMINOTRANSFERASE 10 U/L (15-37); BILIRUBIN,DIRECT 0.1 mg/dL (0.0-0.2); BILIRUBIN,TOTAL 0.3 mg/dL (0.2-1.0); LIPASE 101 U/L (73-393); TOTAL PROTEIN, SERUM 6.9 g/dL (6.4-8.2)
[2019-08-19] MEDS ORDERED: MORPHINE SULFATE INJ 2 MG/ML DISP.SYRIN IV ONE (23:30)
[2019-08-20] MEDS ORDERED: METRONIDAZOLE 500 MG TABLET PO ONE
[2019-08-20] MEDS ORDERED: CIPROFLOXACIN HCL 500 MG TABLET PO ONE
[2019-08-20] MEDS ORDERED: CIPROFLOXACIN HCL 500 MG TABLET ONE (00:04)
[2019-08-20] MEDS ORDERED: METRONIDAZOLE 500 MG TABLET ONE (00:04)
[2019-08-20 00:11] VITALS: BP 120/69
--- NOTE | 2019-08-20 00:11 | NUR ---
Patient discharged to home in stable condition. Written and verbal after care instructions given. Patient verbalizes understanding of instruction.IV removed. Catheter intact and site benign. Pressure and 4x4 applied to site. No bleeding noted.Pt ambulatory with a steady gait
== END 2019-08-20 00:11 | disposition home or self-care (01) ==
LOC: ER 21:23
DX: K52.9 Noninfective gastroenteritis and colitis, unspecified (principal); E11.9 Type 2 diabetes mellitus without complications; F10.10 Alcohol abuse, uncomplicated; Y90.9 Presence of alcohol in blood, level not specified; Z98.890 Other specified postprocedural states; Z90.49 Acquired absence of other specified parts of digestive tract; Z88.5 Allergy status to narcotic agent; Z79.4 Long term (current) use of insulin; Z88.9 Allergy status to unspecified drugs, medicaments and biological substances
CPT/HCPCS: 36415; 74176; 80048; 80076; 81001; 83690; 84484; 84703; 85025; 85730; 93005; 96361; 96374; 96375; 99284; J1885; J2270; J2405; J7030; 81000-TC

== ENCOUNTER 2019-08-20 23:26 | Emergency (ER) | payer OTHER ==
[~2019-08-20] VITALS: Ht 167.6 cm; Wt 93.0 kg
--- NOTE | 2019-08-21 01:33 | NUR ---
C/O GENERALIZED ABDOMINAL PAIN WITH N/V AND CHILLS X2 DAYS
[2019-08-21] MEDS ORDERED: MAG HYDROX/AL HYDROX/SIMETH 30 ML UDC ONE (01:49)
[2019-08-21] MEDS ORDERED: ONDANSETRON 4 MG TAB.RAPDIS ONE (01:49)
[2019-08-21] MEDS ORDERED: LIDOCAINE VISCOUS 2% UD 15 ML UDC ONE (01:49)
[2019-08-21 01:55] LABS: BASOPHILS # (AUTO) 0.1 /CMM (0.0-0.2); EOSINOPHILS % (AUTO) 1.1 % (0.0-6.0); HEMATOCRIT 39 % (33-45); HEMOGLOBIN 12.8 g/dL (11.5-14.8); LYMPHOCYTES # (AUTO) 2.7 /CMM (0.8-4.8); LYMPHOCYTES % (AUTO) 26.1 % (20.0-44.0); MEAN CORPUSCULAR HGB CONC 33 g/dl (31.0-36.0); MEAN CORPUSCULAR VOLUME 81 fL (82-100); MONOCYTES # (AUTO) 0.8 /CMM (0.1-1.30); NEUTROPHILS # (AUTO) 6.6 /CMM (1.8-8.9); NEUTROPHILS % (AUTO) 63.8 % (43.0-81.0); PLATELET COUNT (AUTO) 435 /CMM (150-450); RED BLOOD CELL COUNT(AUTO) 4.76 MIL/uL (4.0-5.2); WHITE BLOOD COUNT (AUTO) 10.4 K/uL (4.3-11.0)
[2019-08-21] MEDS ORDERED: MAG HYDROX/AL HYDROX/SIMETH 30 ML UDC PO ONE (02:00)
[2019-08-21] MEDS ORDERED: LIDOCAINE VISCOUS 2% UD 15 ML UDC MM ONE (02:00)
[2019-08-21] MEDS ORDERED: ONDANSETRON 4 MG TAB.RAPDIS SL ONE (02:00)
[2019-08-21 02:12] LABS: ALANINE AMINOTRANSFERASE 12 U/L (12-78); ALBUMIN 3.1 g/dL (3.4-5.0); ALKALINE PHOSPHATASE 91 U/L (46-116); ASPARTATE AMINOTRANSFERASE 10 U/L (15-37); BILIRUBIN,DIRECT 0.1 mg/dL (0.0-0.2); BILIRUBIN,TOTAL 0.8 mg/dL (0.2-1.0); CALCIUM, SERUM 9.1 mg/dL (8.5-10.1); CARBON DIOXIDE 28 mmol/L (21-32); CHLORIDE 102 mmol/L (98-107); CREATININE 0.7 mg/dL (0.6-1.3); GLUCOSE 307 mg/dL (74-106); LIPASE 80 U/L (73-393); POTASSIUM 4.1 mmol/L (3.5-5.1); SODIUM SERUM 138 mmol/L (136-145); TOTAL PROTEIN, SERUM 7.2 g/dL (6.4-8.2); UREA NITROGEN, BLOOD 9 mg/dL (7-18)
--- NOTE | 2019-08-21 03:22 | NUR ---
Patient discharged to home in stable condition. rx and Written and verbal after care instructions given. Patient verbalizes understanding of instruction.
[2019-08-21 03:28] VITALS: BP 119/68
== END 2019-08-21 03:28 | disposition home or self-care (01) ==
LOC: ER 23:28
DX: R10.13 Epigastric pain (principal); E11.9 Type 2 diabetes mellitus without complications; R11.0 Nausea; Z98.890 Other specified postprocedural states; Z90.49 Acquired absence of other specified parts of digestive tract; Z88.5 Allergy status to narcotic agent; Z79.4 Long term (current) use of insulin; Z79.899 Other long term (current) drug therapy; Z88.9 Allergy status to unspecified drugs, medicaments and biological substances
CPT/HCPCS: 36415; 71045; 80048; 80076; 82010; 83690; 84484; 85025; 93005 ×2; 99284; Q0162

== ENCOUNTER 2022-08-01 13:33 | Inpatient (IN) | payer OTHER ==
[~2022-08-01] VITALS: Ht 165.1 cm; Wt 91.6 kg
[2022-08-01 08:05] VITALS: BP 156/84
--- NOTE | 2022-08-01 13:50 | NUR ---
RECEVED PT 42 YRS FEMALE CAME FROM HOME BY LUCILA C/O DIZZY X1 DAYS AND N/V FOR 2 DAYS
--- NOTE | 2022-08-01 14:06 | NUR ---
DR BAILEY AT BEDSIDE FOR EVAL
[2022-08-01] MEDS ORDERED: diphenhydrAMINE HCL 50 MG/ML VIAL ONE (14:19)
[2022-08-01] MEDS ORDERED: METOCLOPRAMIDE HCL 10 MG/2 ML VIAL ONE (14:19)
--- NOTE | 2022-08-01 14:25 | NUR ---
BLOOD DROW BY LAB TACKH AT BED SIDE BY LAB TACH
[2022-08-01] MEDS ORDERED: diphenhydrAMINE HCL 50 MG/ML VIAL IV ONE (14:30)
[2022-08-01] MEDS ORDERED: IV NS 0.9% 1,000 ML IV ONE ×3 (14:30→21:30)
[2022-08-01] MEDS ORDERED: METOCLOPRAMIDE HCL 10 MG/2 ML VIAL IV ONE (14:30)
--- NOTE | 2022-08-01 14:38 | NUR ---
ACCU CHECK DONE AT BED SIDE 438MG/LD DR. BAILEY NOTEFED
[2022-08-01 15:05] LABS: ALBUMIN 3.8 g/dL (3.4-5.0); BILIRUBIN,TOTAL 1.2 mg/dL (0.2-1.0); CALCIUM, SERUM 9.5 mg/dL (8.5-10.1); CREATININE 1.4 mg/dL (0.6-1.3); MAGNESIUM 1.9 mg/dL (1.8-2.4); POTASSIUM 4.2 mmol/L (3.5-5.1); TOTAL PROTEIN, SERUM 8.9 g/dL (6.4-8.2)
[2022-08-01 15:06] LABS: BASOPHILS # (AUTO) 0.1 K/uL (0.0-0.2); BASOPHILS % (AUTO) 0.4 % (0.0-2.0); HEMATOCRIT 41 % (33-45); HEMOGLOBIN 13.3 g/dL (11.5-14.8); LYMPHOCYTES # (AUTO) 1.3 K/uL (0.8-4.8); LYMPHOCYTES % (AUTO) 6.7 % (20.0-44.0); MEAN CORPUSCULAR HGB CONC 32 g/dl (31.0-36.0); MEAN CORPUSCULAR VOLUME 84 fL (82-100); MONOCYTES # (AUTO) 0.5 K/uL (0.1-1.30); MONOCYTES % (AUTO) 2.6 % (2.0-12.0); NEUTROPHILS # (AUTO) 17.4 K/uL (1.8-8.9); NEUTROPHILS % (AUTO) 90.3 % (43.0-81.0); PLATELET COUNT (AUTO) 554 K/uL (150-450); RED BLOOD CELL COUNT(AUTO) 4.89 MIL/uL (4.0-5.2); WHITE BLOOD COUNT (AUTO) 19.3 K/uL (4.3-11.0)
--- NOTE | 2022-08-01 15:37 | NUR ---
URINE SAMPLE COLLECTED AND SENT TO LAB
[2022-08-01 15:53] LABS: BILIRUBIN,URINE 2+ (NEGATIVE); COLOR,URINE YELLOW (YELLOW); LEUKOCYTE ESTERASE ,URINE NEGATIVE (NEGATIVE); NITRITE, URINE NEGATIVE (NEGATIVE); PH,URINE 5.5 (5.0-8.0); PROTEIN,URINE 2+ mg/dl (NEGATIVE); UGLUCOSE 3+ mg/dL (NEGATIVE); UROBILINOGEN,URINE 0.2 EU/dL (0.2)
[2022-08-01] MEDS ORDERED: INSULIN REGULAR, HUMAN 100 UNITS in IV NS 0.9% 100 ML IV PRN ×2 (16:00)
[2022-08-01] MEDS ORDERED: POTASSIUM CL. PREMIX PERIPHER. 50 ML ONE ×2 (16:15→17:23)
--- NOTE | 2022-08-01 16:23 | NUR ---
ROOM 254
[2022-08-01] MEDS ORDERED: LORAZEPAM INJ 2 MG/ML VIAL ONE (16:26)
[2022-08-01] MEDS ORDERED: LORAZEPAM INJ 2 MG/ML VIAL IV ONE (16:30)
[2022-08-01] MEDS: POTASSIUM CL. PREMIX PERIPHER. 50 ML IV SCH ×2 (16:34→17:26)
--- NOTE | 2022-08-01 16:40 | NUR ---
DR JARVIS AT BEDSIDE W/ PT
[2022-08-01 16:43] LABS: BACTERIA,URINE None seen /HPF (None Seen); RBC,URINE 21-50 /HPF (0-2); WBC,URINE 0-2 /HPF (0-3)
[2022-08-01] MEDS ORDERED: ACETAMINOPHEN 325 MG TABLET PO PRN (17:00)
[2022-08-01] MEDS ORDERED: Z GUARD REMEDY 4 OZ OINT TP PRN (17:00)
[2022-08-01] MEDS ORDERED: IV NS 0.9% 1,000 ML IV PRN (17:00)
[2022-08-01] MEDS ORDERED: MAGNESIUM HYDROXIDE 30 ML UDC PO PRN (17:00)
[2022-08-01] MEDS ORDERED: MAG HYDROX/AL HYDROX/SIMETH 30 ML UDC PO PRN (17:00)
--- NOTE | 2022-08-01 17:05 | NUR ---
JESUSITA SIFUENTES SENT TO LAB
[2022-08-01] MEDS ORDERED: ENOXAPARIN SODIUM 40 MG/0.4 ML DISP.SYRIN SQ ONE (17:23)
[2022-08-01] MEDS ORDERED: PANTOPRAZOLE 40 MG VIAL ONE (17:23)
--- NOTE | 2022-08-01 17:25 | NUR ---
HAND OFF Andres VELASQUEZ RN TO ROOM [facility]
[2022-08-01] MEDS: PANTOPRAZOLE 40 MG VIAL IV SCH (17:27)
[2022-08-01] MEDS: ENOXAPARIN SODIUM 40 MG/0.4 ML DISP.SYRIN SQ SCH (17:28)
--- NOTE | 2022-08-01 17:30 | NUR ---
ROOM 255
[2022-08-01 17:34] LABS: CREATININE 1.3 mg/dL (0.6-1.3); MAGNESIUM 1.8 mg/dL (1.8-2.4); PHOSPHORUS 3.1 mg/dL (2.5-4.9); POTASSIUM 4.3 mmol/L (3.5-5.1)
--- NOTE | 2022-08-01 17:54 | NUR ---
TO ROOM 254 VIA PILY
--- NOTE | 2022-08-01 18:05 | NUR ---
MARKET RISK SPECIALIST NOTES PATIENT ADMITTED AT THIS TIME FROM ER FEMALE ON Dx OF DKA, BS-381 MG/DL PER LAB RESULT. PATIENT A/OX4, NO ACUTE RESPIRATORY DISTRESS. SKIN ASSESSMENT DONE INTACT. PATIENT USING BATHROOM. IV ACCESS ON LEFT AND RIGHT AC AREA INTACT. BP 155/76, P-115. PATIENT WAS COMPLAINING OF NAUSEA, AND ANXIOUS. ADMINISTERED ATIVAN 1 MG/ML IV PUSH, AND ZOFRAN 4 MG/ML IV PUSH, CALL LIGHT WITHIN TO REACH. STARTED INSULIN DRIP 9.09U, AND NS @125 ML/HR .ENDORSED ONCOMING NURSE RIO.
[2022-08-01] MEDS: ATORVASTATIN 40 MG TABLET PO SCH (18:33)
[2022-08-01] MEDS: ONDANSETRON HCL/PF 4 MG/2 ML VIAL IVP PRN (18:33)
[2022-08-01] MEDS: LORAZEPAM INJ 2 MG/ML VIAL IV PRN (18:45)
[2022-08-01 19:00] VITALS: BP 201/106
[2022-08-01] MEDS ORDERED: INSULIN REGULAR, HUMAN 100 UNIT/ML 3 ML VIAL SQ SCH (19:45)
[2022-08-01 20:00] VITALS: BP 194/102
[2022-08-01] MEDS ORDERED: hydrALAZINE HCL IV 20 MG VIAL IV PRN (20:00)
[2022-08-01] MEDS: BLOOD SUGAR DIAGNOSTIC 1 EACH STRIP IN SCH ×4 (20:27→23:06)
[2022-08-01] MEDS ORDERED: IV D5/ 0.9% NACL 1,000 ML IV SCH (20:30)
[2022-08-01] MEDS: INSULIN REGULAR, HUMAN 100 UNIT in IV NS 0.9% 99 ML IV PRN ×4 (20:47→21:22)
[2022-08-01 21:00] VITALS: BP 197/100
[2022-08-01 21:10] LABS: CALCIUM, SERUM 8.4 mg/dL (8.5-10.1); CREATININE 1.2 mg/dL (0.6-1.3); POTASSIUM 3.8 mmol/L (3.5-5.1)
[2022-08-01 21:14] LABS: MAGNESIUM 1.9 mg/dL (1.8-2.4); PHOSPHORUS 2.5 mg/dL (2.5-4.9)
--- NOTE | 2022-08-01 21:25 | NUR ---
repeat bg came back at 328. insulin drip restarted at 3ml/hr. d5w switched back to ns at 125ml/hr.
[2022-08-01] MEDS ORDERED: hydrALAZINE HCL IV 20 MG VIAL IV STA (21:28)
[2022-08-01 22:00] VITALS: BP 173/87
[2022-08-01] MEDS ORDERED: hydrALAZINE HCL IV 20 MG VIAL IV ONE (22:00)
[2022-08-01 23:00] VITALS: BP 177/97
[2022-08-02] VITALS (29 sets, daily range): BP systolic 121–182; BP diastolic 50–107
[2022-08-02] MEDS: ONDANSETRON HCL/PF 4 MG/2 ML VIAL IVP PRN ×4 (00:08→22:45)
[2022-08-02] MEDS: TEMAZEPAM 15 MG CAPSULE PO PRN ×2 (00:08→20:42)
[2022-08-02] MEDS: BLOOD SUGAR DIAGNOSTIC 1 EACH STRIP IN SCH ×19 (00:09→20:37)
[2022-08-02 01:07] LABS: CALCIUM, SERUM 8.2 mg/dL (8.5-10.1); CREATININE 1.1 mg/dL (0.6-1.3); POTASSIUM 3.7 mmol/L (3.5-5.1)
--- NOTE | 2022-08-02 01:18 | NUR ---
pt's sbp was consistently above 160. hydralazine was given twice with good effect. SBP currently below 160. pt had one episode of vomiting. Zofran was given without good effect.
[2022-08-02] MEDS ORDERED: NICARDIPINE IN DEXTROSE,ISO-OS 200 ML IV ONE ×2 (01:42→05:18)
[2022-08-02] MEDS: NICARDIPINE HCL 40 MG in IV NS 0.9% 184 ML IV PRN ×4 (01:49→18:18)
[2022-08-02] MEDS: METOCLOPRAMIDE HCL 10 MG/2 ML VIAL IV SCH ×4 (04:01→21:07)
[2022-08-02 04:33] LABS: BASOPHILS # (AUTO) 0.1 K/uL (0.0-0.2); BASOPHILS % (AUTO) 0.2 % (0.0-2.0); HEMATOCRIT 36 % (33-45); HEMOGLOBIN 11.4 g/dL (11.5-14.8); LYMPHOCYTES # (AUTO) 2.4 K/uL (0.8-4.8); LYMPHOCYTES % (AUTO) 9.9 % (20.0-44.0); MEAN CORPUSCULAR HGB CONC 32 g/dl (31.0-36.0); MEAN CORPUSCULAR VOLUME 83 fL (82-100); MONOCYTES # (AUTO) 1.8 K/uL (0.1-1.30); MONOCYTES % (AUTO) 7.3 % (2.0-12.0); NEUTROPHILS # (AUTO) 20.2 K/uL (1.8-8.9); NEUTROPHILS % (AUTO) 82.6 % (43.0-81.0); PLATELET COUNT (AUTO) 518 K/uL (150-450); RED BLOOD CELL COUNT(AUTO) 4.27 MIL/uL (4.0-5.2); WHITE BLOOD COUNT (AUTO) 24.5 K/uL (4.3-11.0)
[2022-08-02 04:48] LABS: MAGNESIUM 1.8 mg/dL (1.8-2.4); PHOSPHORUS 2.4 mg/dL (2.5-4.9); POTASSIUM 3.4 mmol/L (3.5-5.1)
[2022-08-02] MEDS: IV NS 0.9% 1,000 ML IV SCH ×2 (04:53→11:30)
[2022-08-02 04:59] LABS: THYROID STIMULATING HORMONE 0.625 uIU/mL (0.358-3.74)
--- NOTE | 2022-08-02 06:25 | NUR ---
Nicardipine drip given with good effect. pt's SBP has been below 160. Pt has had 3 episodes of n/v. zofran and reglan had little effect. pt currently on insulin drip of 2u/hr.
[2022-08-02] MEDS: LORAZEPAM INJ 2 MG/ML VIAL IV PRN ×2 (06:43→14:56)
--- NOTE | 2022-08-02 07:30 | NUR ---
RN OPENING NOTE PT OBSERVED IN BED SLEEPING. PT IS ON RA AT THIS TIME TOLERATING WELL WITH NO SIGNS OF DISTRESS OR LABORED BREATHING O2 SAT 91%. PT IS A/OX3, ANXIOUS, AND TACHY. IV ACCESS L & R AC 20G INFUSING WITH NS@125ML/HR, INSULIN @ 3U/HR; NICARDIPINE @5MG/HR. BED IS LOCKED IN LOWEST POSITION X2 BED RAILS UP CALL LIGHT IS WITHIN REACH WILL CONTINUE TO MONITOR THIS SHIFT.
[2022-08-02] MEDS ORDERED: NICARDIPINE HCL 40 MG in IV NS 0.9% 184 ML IV PRN (08:00)
[2022-08-02] MEDS: PANTOPRAZOLE 40 MG VIAL IV SCH (08:08)
[2022-08-02] MEDS: PAROXETINE HCL 20 MG TABLET PO SCH (08:08)
[2022-08-02] MEDS ORDERED: NICARDIPINE IN NACL, ISO-OSM 200 ML IV PRN (08:30)
[2022-08-02 08:49] LABS: CALCIUM, SERUM 8.1 mg/dL (8.5-10.1); POTASSIUM 3.2 mmol/L (3.5-5.1)
--- NOTE | 2022-08-02 09:21 | NUR ---
RN NOTE: NICARDIPINE RECEIVED 40MG DOSE BAG OF NICARDIPINE. IV PUMP IS ONLY PROGRAMED FOR 20MG CONCENTRATION. PT IS CURRENTLY RECEIVING 5MG/HR DOSE / 50ML/HR. PER PHARMACY, CHANGE DOSAGE RATE TO 2.5MG/HR, WHICH WILL RECALCULATE ML/HR TO 25ML/HR.
[2022-08-02] MEDS ORDERED: LORAZEPAM INJ 2 MG/ML VIAL IV ONE (09:30)
[2022-08-02] MEDS ORDERED: POTASSIUM CHLORIDE 20 MEQ POWDER PACKET PO SCH (10:00)
[2022-08-02] MEDS ORDERED: NEUTRA PHOS 1 POWD.PACKET PO ONE (11:00)
[2022-08-02] MEDS: POTASSIUM CL. PREMIX PERIPHER. 50 ML IV SCH ×2 (11:29→12:31)
[2022-08-02 13:05] LABS: CALCIUM, SERUM 8.1 mg/dL (8.5-10.1); CREATININE 0.9 mg/dL (0.6-1.3); POTASSIUM 3.3 mmol/L (3.5-5.1)
[2022-08-02] MEDS ORDERED: Sodium Phosphate 15 MMOL in IV NS 0.9% 245 ML IV SCH (15:00)
--- NOTE | 2022-08-02 15:11 | NUR ---
RN NOTES ADMINISTERED ATIVAN 1 MG/ML IV PUSH, AND ZOFRAN 8MG/DL IV PUSH PER PATIENT REQUEST,BP 141/81 HR 97.
[2022-08-02] MEDS ORDERED: DEXTROSE 50%-WATER 50 ML DISP.SYRIN IV PRN (15:30)
[2022-08-02 16:59] LABS: CALCIUM, SERUM 7.9 mg/dL (8.5-10.1); CREATININE 0.8 mg/dL (0.6-1.3); POTASSIUM 3.5 mmol/L (3.5-5.1)
[2022-08-02] MEDS: INSULIN REGULAR, HUMAN 100 UNIT/ML 3 ML VIAL SQ PRN ×2 (17:00→20:36)
[2022-08-02] MEDS: ATORVASTATIN 40 MG TABLET PO SCH (18:16)
[2022-08-02] MEDS: [UNRECOGNIZED DRUG - OTHER] IV SCH ×2 (18:16)
[2022-08-02] MEDS: KCL IV SCH ×2 (18:16)
[2022-08-02] MEDS: D5 IV SCH ×2 (18:16)
[2022-08-02] MEDS: ENOXAPARIN SODIUM 40 MG/0.4 ML DISP.SYRIN SQ SCH (18:17)
--- NOTE | 2022-08-02 18:57 | NUR ---
RN CLOSING NOTE PT IS IN BED SLEEPING. PT IS ON RA AT THIS TIME TOLERATING WELL WITH NO SIGNS OF DISTRESS OR LABORED BREATHING O2 SAT 97%. PT IS A/OX3, ANXIOUS, AND TACHY. IV ACCESS L & R AC 20G INFUSING WITH KCL@100ML/HR; NICARDIPINE @2.5MG/HR. BED IS LOCKED IN LOWEST POSITION X2 BED RAILS UP CALL LIGHT IS WITHIN REACH WILL ENDORSE TO BAGGAGE CLERK NURSE FOR RIO.
[2022-08-02 20:54] LABS: CALCIUM, SERUM 8.2 mg/dL (8.5-10.1); CREATININE 0.9 mg/dL (0.6-1.3); POTASSIUM 3.3 mmol/L (3.5-5.1)
--- NOTE | 2022-08-02 21:30 | NUR ---
pt's o2 sat reached 84% while pt was asleep. applied 2 li nc for sleep purposes. pt was asymptomatic of hypoxia.
[2022-08-03] VITALS (21 sets, daily range): BP systolic 93–157; BP diastolic 55–103
[2022-08-03] MEDS: BLOOD SUGAR DIAGNOSTIC 1 EACH STRIP IN SCH ×3 (00:28→08:14)
[2022-08-03] MEDS: INSULIN REGULAR, HUMAN 100 UNIT/ML 3 ML VIAL SQ PRN ×5 (00:28→17:14)
[2022-08-03] MEDS: LORAZEPAM INJ 2 MG/ML VIAL IV PRN (01:08)
[2022-08-03] MEDS: [UNRECOGNIZED DRUG - OTHER] IV SCH ×4 (02:23→13:37)
[2022-08-03] MEDS: KCL IV SCH ×4 (02:23→13:37)
[2022-08-03] MEDS: MORPHINE SULFATE INJ 2 MG/ML DISP.SYRIN IV PRN ×4 (02:23→20:29)
[2022-08-03] MEDS: D5 IV SCH ×4 (02:23→13:37)
[2022-08-03] MEDS: METOCLOPRAMIDE HCL 10 MG/2 ML VIAL IV SCH ×4 (03:34→21:41)
[2022-08-03] MEDS: NICARDIPINE HCL 40 MG in IV NS 0.9% 184 ML IV PRN (03:41)
--- NOTE | 2022-08-03 05:16 | NUR ---
pt c/o nausea multiple times throughout the night. zofran and reglan kept nausea away for few hours but pt eventually complained of feeling nauseous. Pt c/o pain in the abdomen and given morphine with good results. Pt was able to eventually fall asleep. SBP has been maintained with cardipene drip.
[2022-08-03 05:51] LABS: CALCIUM, SERUM 8.3 mg/dL (8.5-10.1); CREATININE 0.8 mg/dL (0.6-1.3); PHOSPHORUS 2.2 mg/dL (2.5-4.9); POTASSIUM 3.2 mmol/L (3.5-5.1)
--- NOTE | 2022-08-03 07:40 | NUR ---
ICU/RN PT IS RESTING .ON 3L N/C SAT O2-99%.ON NICARDIPINE DRIP.BP STABLE.AFEBRILE.SKIN INTACT.PT IS AMBULATING INTHE ROOM AND USING BATHROOM.
[2022-08-03] MEDS: PAROXETINE HCL 20 MG TABLET PO SCH (08:15)
--- NOTE | 2022-08-03 08:15 | NUR ---
ICU/RN PT HAS NAUSEA ,VOMIT .REGLAN IV GIVEN ORDERED.HAS ABDOMINAL PAIN .MORPHINE 4MG IV GIVEN .PT IS NPO.PO MEDS HOLD. LABS REVIEW.BS CHECKED. AM CARE PROVIDED.
[2022-08-03] MEDS: PANTOPRAZOLE 40 MG VIAL IV SCH (08:36)
[2022-08-03] MEDS ORDERED: PANTOPRAZOLE 40 MG TABLET.DR PO SCH (09:00)
[2022-08-03] MEDS ORDERED: DEXTROSE 50%-WATER 50 ML DISP.SYRIN IV PRN (11:00)
--- NOTE | 2022-08-03 11:00 | NUR ---
ICU/RN MID LINE INSERTED
[2022-08-03] MEDS: BLOOD SUGAR DIAGNOSTIC 1 EACH STRIP VI SCH ×3 (11:31→22:16)
[2022-08-03] MEDS: POTASSIUM PHOSPHATE MM 7.5 MMOL in IV NS 0.9% 100 ML IV SCH ×2 (11:31→14:12)
--- NOTE | 2022-08-03 15:35 | NUR ---
ICU/RN PT HAS NAUSEA,VOMITING.REGLAN IV GIVEN ORDERED. AWARE.
[2022-08-03] MEDS: ENOXAPARIN SODIUM 40 MG/0.4 ML DISP.SYRIN SQ SCH (16:14)
--- NOTE | 2022-08-03 16:20 | NUR ---
ICU/RN PT C/O OF ABDOMINAL PAIN 9-06/01. MORPHINE SULFATE IV GIVEN ORDERED.
--- NOTE | 2022-08-03 16:29 | NUR ---
ICU/RN OK TRANSFER PT TO M/S UNIT..V/S STABLE ,AFEBRILE.
--- NOTE | 2022-08-03 16:35 | NUR ---
ICU/RN PT TRANSFER TO M/S UNIT.V/S STABLE,AFEBRILE.REPORT GIVEN TO RAY/BARB
[2022-08-03] MEDS: ATORVASTATIN 40 MG TABLET PO SCH (17:16)
--- NOTE | 2022-08-03 17:35 | NUR ---
RN NOTES PT TRANSFERRED FROM ICU RM 255 TO UNIT AT 1645 ACCOMPANIED BY DIRECTOR OF SOFTWARE DEVELOPMENT DOMITILA. PT IS AWAKE, A/O X3. ABLE TO MAKE NEEDS KNOWN. ORIENTED TO STAFF AND ROOM AND. PT ON ROOM AIR AT THIS TIME, TOLERATING WELL WITH NO SIGNS OF DISTRESS OR LABORED BREATHING NOTED. IV ACCESS ON LAC INTACT, SL. K-PHOS @35ML/HR AND KCL 40 MEQ IN D5 1/2 NS RUNNING AT 100 ML/HR VIA MIDLINE ON MANUEL G#18, NO S/S OF INFILTRATIONS AT SITES NOTED. PT PLACED ON TELEMONITOR WITH CURRENT READING OF NSR WITH HR OF 91, NO C/O CARDIAC DISTRESS VOICED AT THIS TIME. PT WITH INTACT SKIN. ALL SAFETY MEASURES IMPLEMENTED: BED PLACED IN LOWEST LOCKED POSITION, SIDE-RAILS UP X2 AND TRAY TABLE AND CALL LIGHT W/I EASY REACH OF PT. WILL CONTINUE TO MONITOR PT.
[2022-08-03] MEDS: ONDANSETRON HCL/PF 4 MG/2 ML VIAL IVP PRN (17:39)
--- NOTE | 2022-08-03 17:53 | NUR ---
RN NOTES PT C/O NAUSEA AND VOMITED SMALL AMOUNT OF CLEAR FLUIDS ABOUT 15ML, PRN ZOFRAN 8MG/4ML IVP ADMINISTERED AT 1539. WILL CONTINUE TO MONITOR AND REASSESS PT.
--- NOTE | 2022-08-03 18:53 | NUR ---
PLATING ENGINEER CLOSING NOTES PT IN BED ASLEEP AT THIS TIME, EASILY AROUSABLE. PT IS A/O X3. ABLE TO MAKE NEEDS KNOWN. ON ROOM AIR AT THIS TIME, TOLERATING WELL WITH NO SIGNS OF DISTRESS OR LABORED BREATHING NOTED. IV ACCESS ON LAC INTACT AND RFA G#22 BOTH INTACT. PATENT AND SL. IVF OF KCL 40 MEQ IN D5 1/2 NS RUNNING AT 100 ML/HR VIA MIDLINE ON MANUEL G#18, NO S/S OF INFILTRATIONS AT SITES NOTED. ON TELE-MONITOR WITH CURRENT READING OF NSR WITH HR OF 92, NO C/O CARDIAC DISTRESS VOICED. ALL NEEDS AND CARE ATTENDED WELL. ALL SAFETY MEASURES IMPLEMENTED: BED PLACED IN LOWEST LOCKED POSITION, SIDE-RAILS UP X2, TRAY TABLE AND CALL LIGHT W/I EASY REACH OF PT. WILL ENDORSE RIO TO ORTHOTIST NURSE.
--- NOTE | 2022-08-03 19:25 | NUR ---
TELERN ASLEEP, APPEARS COMFORTABLE, PROVIDED QUIET ENVIRONMENT. SR ON THE MONITOR, CLOSELY WATCHED.
--- NOTE | 2022-08-03 20:15 | NUR ---
TELERN ASSISTED TO RESTROOM VOIDED FREELY. STILL NAUSEATED NO EMESIS, DRY HEAVES.MEDICATION REGIMEN AND PLAN OF CARE DISCUSSED WELL UNDERSTOOD.
--- NOTE | 2022-08-03 20:30 | NUR ---
TELERN VERBALIZES MID ABDOMINAL PAIN, MORPHINE 4 MG IVP ADMINISTERED ORDERED. BEDREST INSTRUCTED.
[2022-08-03] MEDS: INSULIN GLARGINE, 100 UNIT/ML CARTRIDGE SQ SCH (22:19)
[2022-08-03] MEDS: *INSULIN REGULAR(HUMULIN R)HUM 100 UNIT/ML VIAL SQ PRN (22:28)
[2022-08-04] VITALS (7 sets, daily range): BP systolic 108–172; BP diastolic 68–89
--- NOTE | 2022-08-04 00:18 | NUR ---
TELERN ASSISTED TO RESTROOM LARGE URINE OUTPUT. JUST STARTED HER PERIOD, PADS PROVIDED. IVF CONTINUED.
--- NOTE | 2022-08-04 00:30 | NUR ---
TELERN SEVERE ABD PAIN MORPHINE 4MG IVP GIVEN, BEDREST INSTRUCTED. NAUSEATED , AT 0050 PATIENT VOMITTED LESS THAN 5CC CLEAR FLUIDS, NPO FOR NOW STATED DID NOT EAT ANYTHING TODAY. ZOFRAN 8 MG ADMINISTERED. CLOSELY WATCHED
[2022-08-04] MEDS: [UNRECOGNIZED DRUG - OTHER] IV SCH ×8 (00:39→22:15)
[2022-08-04] MEDS: KCL IV SCH ×8 (00:39→22:15)
[2022-08-04] MEDS: D5 IV SCH ×8 (00:39→22:15)
[2022-08-04] MEDS: MORPHINE SULFATE INJ 2 MG/ML DISP.SYRIN IV PRN ×6 (00:40→21:16)
[2022-08-04] MEDS: ONDANSETRON HCL/PF 4 MG/2 ML VIAL IVP PRN ×3 (01:00→20:32)
--- NOTE | 2022-08-04 03:20 | NUR ---
TELERN ASLEEP, AROUSABLE WHEN CALLED, REMAINS SR ON THE MONITOR AT RATE 90 WENT BACK TO SLEEP.
[2022-08-04] MEDS: METOCLOPRAMIDE HCL 10 MG/2 ML VIAL IV SCH ×4 (05:02→22:50)
--- NOTE | 2022-08-04 06:00 | NUR ---
TELERN STILL WITH ON/OFF ABD DISCOMFORTS. STATED WILL SPEAK TO MD REGARDING ADJUSTING PAIN AND NAUSEA MEDS. WILL ENDORSE TO INCOMING RN
[2022-08-04 06:05] LABS: CALCIUM, SERUM 8.4 mg/dL (8.5-10.1); CREATININE 0.8 mg/dL (0.6-1.3); POTASSIUM 3.6 mmol/L (3.5-5.1)
[2022-08-04 06:15] LABS: BASOPHILS # (AUTO) 0.1 K/uL (0.0-0.2); BASOPHILS % (AUTO) 0.4 % (0.0-2.0); EOSINOPHILS % (AUTO) 0.7 % (0.0-6.0); HEMATOCRIT 37 % (33-45); HEMOGLOBIN 11.9 g/dL (11.5-14.8); LYMPHOCYTES # (AUTO) 3.1 K/uL (0.8-4.8); LYMPHOCYTES % (AUTO) 22.7 % (20.0-44.0); MEAN CORPUSCULAR HGB CONC 32 g/dl (31.0-36.0); MEAN CORPUSCULAR VOLUME 84 fL (82-100); MONOCYTES # (AUTO) 1.5 K/uL (0.1-1.30); NEUTROPHILS % (AUTO) 65.2 % (43.0-81.0); PLATELET COUNT (AUTO) 472 K/uL (150-450); RED BLOOD CELL COUNT(AUTO) 4.42 MIL/uL (4.0-5.2); WHITE BLOOD COUNT (AUTO) 13.8 K/uL (4.3-11.0)
[2022-08-04] MEDS: BLOOD SUGAR DIAGNOSTIC 1 EACH STRIP VI SCH ×4 (06:50→21:27)
[2022-08-04] MEDS: INSULIN REGULAR, HUMAN 100 UNIT/ML 3 ML VIAL SQ PRN ×2 (06:53→17:21)
--- NOTE | 2022-08-04 07:30 | NUR ---
PAVER INSTALLER NOTES PT IN BED, AWAKE, ALERT AND ORIENTED, NO COMPLAINT OF PAIN AT THIS TIME, COMPLAINED OF BEING NAUSEOUS, CALL LIGHT WITHIN REACH, KEPT WARM AND COMFORTABLE IN BED.
[2022-08-04] MEDS: PANTOPRAZOLE 40 MG VIAL IV SCH (08:42)
[2022-08-04] MEDS: PAROXETINE HCL 20 MG TABLET PO SCH (09:00)
--- NOTE | 2022-08-04 11:14 | NUR ---
CARVER HAND NOTES PT IN BED, ASLEEP, EASY TO AROUSE, ALERT AND ORIENTED, SEEN AND EXAMINED BY DR. SWAIN, ORDERED PT TO BE NPO, CHECK LIPASE AND ORDERED KUB, NOTED AND CARRIED OUT, IV FLUIDS INFUSING WELL.
[2022-08-04] MEDS: ENOXAPARIN SODIUM 40 MG/0.4 ML DISP.SYRIN SQ SCH (17:15)
[2022-08-04] MEDS: ATORVASTATIN 40 MG TABLET PO SCH (17:59)
--- NOTE | 2022-08-04 18:21 | NUR ---
RESIN SHAVER NOTES PT IN BED, SLEEPING INTERMITTENTLY, PAIN MEDS AND NAUSEA MEDS GIVEN ORDERED, IV FLUIDS INFUSING WELL, ABLE TO AMBULATE TO THE BATHROOM WITH SLOW AND STEADY GAIT, NEEDS ATTENDED.
--- NOTE | 2022-08-04 19:30 | NUR ---
TELERN FULLY AWAKE, PRESENT IVF INFUSING WELL. MIDLINE DRESSINGS CHANGED. NO OTHER NEEDS MADE. CONTINUED
--- NOTE | 2022-08-04 20:35 | NUR ---
TELERN NAUSEATED OF THIS TIME, ZOFRAN ADMINISTERED.
--- NOTE | 2022-08-04 22:00 | NUR ---
TELERN BS 178 COVERED WITH REGULAR INSULIN AND LANTUS PER ORDERS. SNACKS PROVIDED, ABLE TO TOLERATE JELLO AND APPLE JUICE. REQUESTED FOR EGG SANDWICH, TOLERATED WHOLE SANDWICH. DUE REGLAN IVP ADMINISTERED.WILL MONITOR. EAGER TO GO HOME.
[2022-08-04] MEDS: INSULIN GLARGINE, 100 UNIT/ML CARTRIDGE SQ SCH (22:48)
[2022-08-04] MEDS: *INSULIN REGULAR(HUMULIN R)HUM 100 UNIT/ML VIAL SQ PRN (22:51)
[2022-08-04] MEDS: TEMAZEPAM 15 MG CAPSULE PO PRN (23:44)
[2022-08-05] VITALS: BP 109/61
[2022-08-05 00:14] VITALS: BP 109/61
[2022-08-05] MEDS: MORPHINE SULFATE INJ 2 MG/ML DISP.SYRIN IV PRN ×3 (01:06→09:54)
--- NOTE | 2022-08-05 01:28 | NUR ---
TELERN MEDICATED WITH MORPHINE 4MG FOR ABD PAIN. IVF RESUMED.
[2022-08-05] MEDS: METOCLOPRAMIDE HCL 10 MG/2 ML VIAL IV SCH ×2 (05:00→09:55)
[2022-08-05 05:56] LABS: BASOPHILS # (AUTO) 0.1 K/uL (0.0-0.2); BASOPHILS % (AUTO) 0.6 % (0.0-2.0); EOSINOPHILS % (AUTO) 2.5 % (0.0-6.0); HEMATOCRIT 35 % (33-45); HEMOGLOBIN 11.3 g/dL (11.5-14.8); LYMPHOCYTES # (AUTO) 3.7 K/uL (0.8-4.8); LYMPHOCYTES % (AUTO) 32.6 % (20.0-44.0); MEAN CORPUSCULAR HGB CONC 32 g/dl (31.0-36.0); MEAN CORPUSCULAR VOLUME 84 fL (82-100); MONOCYTES # (AUTO) 1.1 K/uL (0.1-1.30); MONOCYTES % (AUTO) 9.2 % (2.0-12.0); NEUTROPHILS # (AUTO) 6.3 K/uL (1.8-8.9); NEUTROPHILS % (AUTO) 55.1 % (43.0-81.0); PLATELET COUNT (AUTO) 428 K/uL (150-450); RED BLOOD CELL COUNT(AUTO) 4.15 MIL/uL (4.0-5.2); WHITE BLOOD COUNT (AUTO) 11.4 K/uL (4.3-11.0)
[2022-08-05 06:36] LABS: CALCIUM, SERUM 8.1 mg/dL (8.5-10.1); CREATININE 0.9 mg/dL (0.6-1.3); MAGNESIUM 1.8 mg/dL (1.8-2.4); PHOSPHORUS 3.6 mg/dL (2.5-4.9); POTASSIUM 3.7 mmol/L (3.5-5.1)
[2022-08-05] MEDS: BLOOD SUGAR DIAGNOSTIC 1 EACH STRIP VI SCH ×2 (06:41→12:29)
--- NOTE | 2022-08-05 07:00 | NUR ---
TELERN ENDORSED TO INCOMING RN FOR CONTINUITY OF CARE.
[2022-08-05 08:00] VITALS: BP 97/64
[2022-08-05] MEDS ORDERED: PANTOPRAZOLE 40 MG/PACK PACK PO SCH (09:00)
[2022-08-05] MEDS: ATORVASTATIN 40 MG TABLET PO SCH (09:53)
[2022-08-05] MEDS: PAROXETINE HCL 20 MG TABLET PO SCH (09:53)
[2022-08-05] MEDS: ENOXAPARIN SODIUM 40 MG/0.4 ML DISP.SYRIN SQ SCH (09:53)
== END 2022-08-05 15:30 | disposition home or self-care (01) | DRG 420 ==
LOC: ER 13:43 → ICU 17:02 → TELE 08-03 16:50
PROVIDERS: ADMIT Nurse Practitioner Acute Care; ATTEND Student in an Organized Health Care Education/Training Program
PROC: 05HF33Z Insertion of Infusion Device into Left Cephalic Vein, Percutaneous Approach (ICD-10-PCS; principal; 2022-08-03)
DX: E10.10 Type 1 diabetes mellitus with ketoacidosis without coma (principal); N17.0 Acute kidney failure with tubular necrosis; K31.84 Gastroparesis; E10.43 Type 1 diabetes mellitus with diabetic autonomic (poly)neuropathy; E78.5 Hyperlipidemia, unspecified; E87.6 Hypokalemia; E66.9 Obesity, unspecified; Z68.33 Body mass index [BMI] 33.0-33.9, adult; K21.9 Gastro-esophageal reflux disease without esophagitis; Z91.14 Patient's other noncompliance with medication regimen; I10 Essential (primary) hypertension; E86.1 Hypovolemia; Z83.3 Family history of diabetes mellitus; F32.A Depression, unspecified; E87.1 Hypo-osmolality and hyponatremia; Z79.4 Long term (current) use of insulin; Z90.49 Acquired absence of other specified parts of digestive tract; Z98.891 History of uterine scar from previous surgery; Z88.5 Allergy status to narcotic agent; Z88.8 Allergy status to other drugs, medicaments and biological substances
CPT/HCPCS: 36410; 36415; 71045-TC; 74018; 80048-TC; 80053-TC; 81001; 82962-TC; 83690-TC; 83735-TC; 84100-TC; 84443-TC; 84703-TC; 85025-TC; 87081-TC; A9563; C9113; G0378; J0360; J1200; J1650; J1815; J2060; J2270; J2405; J2765; J3480; J3490; J7030; J7042; J7050

== ENCOUNTER 2024-05-06 14:37 | Emergency (ER) | payer OTHER ==
[~2024-05-06] VITALS: Ht 167.6 cm; Wt 97.1 kg
[2024-05-06] MEDS ORDERED: ONDANSETRON HCL/PF 4 MG/2 ML VIAL ONE (15:37)
[2024-05-06 15:39] LABS: BASOPHILS # (AUTO) 0.1 K/uL (0.0-0.2); BASOPHILS % (AUTO) 0.4 % (0.0-2.0); EOSINOPHILS # (AUTO) 0.1 K/uL (0.0-0.7); EOSINOPHILS % (AUTO) 0.7 % (0.0-6.0); HEMATOCRIT 32 % (33-45); LYMPHOCYTES % (AUTO) 9.9 % (20.0-44.0); MEAN CORPUSCULAR HEMOGLOBIN 25 PG (26.0-33.0); MEAN CORPUSCULAR HGB CONC 31 g/dl (31.0-36.0); MEAN CORPUSCULAR VOLUME 79 fL (82-100); MONOCYTES # (AUTO) 1.1 K/uL (0.1-1.30); MONOCYTES % (AUTO) 5.7 % (2.0-12.0); NEUTROPHILS # (AUTO) 16.5 K/uL (1.8-8.9); NEUTROPHILS % (AUTO) 83.3 % (43.0-81.0); PLATELET COUNT (AUTO) 521 K/uL (150-450); RED BLOOD CELL COUNT(AUTO) 4.07 MIL/uL (4.0-5.2); RED CELL DISTRIBUTION WIDTH 15.7 % (11.5-15.0); WHITE BLOOD COUNT (AUTO) 19.8 K/uL (4.3-11.0)
[2024-05-06] MEDS: IV NS 0.9% 1,000 ML BAG IV ONE (15:40)
[2024-05-06 15:48] LABS: CALCIUM, SERUM 8.8 mg/dL (8.5-10.1); CREATININE 1.1 mg/dL (0.6-1.3); POTASSIUM 4.4 mmol/L (3.5-5.1)
[2024-05-06 15:54] LABS: ALBUMIN 3.1 g/dL (3.4-5.0); BILIRUBIN,DIRECT 0.1 mg/dL (0.0-0.2); BILIRUBIN,TOTAL 0.9 mg/dL (0.2-1.0); TOTAL PROTEIN, SERUM 7.8 g/dL (6.4-8.2)
[2024-05-06] MEDS ORDERED: METOCLOPRAMIDE HCL 10 MG/2 ML VIAL IV ONE (16:00)
[2024-05-06] MEDS: ONDANSETRON HCL/PF - ER 4 MG/2 ML VIAL IV ONE (16:00)
[2024-05-06] MEDS ORDERED: PENICILLIN G BENZATHINE 2.4 MMU/4 ML ML IM ONE (16:03)
[2024-05-06] MEDS ORDERED: dexaMETHasone SOD PHOSPHATE 1 ML ONE (16:03)
[2024-05-06] MEDS: dexaMETHasone SOD PHOSPHATE 10 MG/ML VIAL MC ONE (16:10)
[2024-05-06] MEDS: PENICILLIN G BENZATHINE 2.4 MMU/4 ML ML IM ONE (16:14)
[2024-05-06] MEDS ORDERED: METOCLOPRAMIDE HCL 10 MG/2 ML VIAL ONE (17:56)
[2024-05-06] MEDS: METOCLOPRAMIDE HCL 10 MG/2 ML VIAL IV ONE (18:05)
[2024-05-06] MEDS ORDERED: INSULIN REGULAR, HUMAN 100 UNIT/ML 10 ML VIAL ONE (20:26)
[2024-05-06] MEDS: INSULIN REGULAR, HUMAN 100 UNIT/ML 10 ML VIAL SQ ONE (20:36)
[2024-05-06 20:40] VITALS: BP 130/78; TEMP 98.2; O2SAT 99
== END 2024-05-06 20:41 | disposition home or self-care (01) ==
LOC: ER 14:51
DX: J02.8 Acute pharyngitis due to other specified organisms (principal); E11.65 Type 2 diabetes mellitus with hyperglycemia; R11.2 Nausea with vomiting, unspecified; I10 Essential (primary) hypertension; Z87.448 Personal history of other diseases of urinary system; Z87.42 Personal history of other diseases of the female genital tract; Z90.49 Acquired absence of other specified parts of digestive tract; Z88.8 Allergy status to other drugs, medicaments and biological substances
CPT/HCPCS: 99284; 96374; 96361; 96375; 87426; 93005; 87804 ×2; 85025; 80048; 83690; 80076; 36415; 96372 ×2; J0558; J1100; J1815; J2765; J2405 ×2; J7030